=== PATIENT | female | born 1940 | race Caucasian/White ===

== ENCOUNTER → 2016-12-15 | Day surgery (SDC) | payer MEDICARE ==
[2016-12-08 08:34] VITALS: BMI 27.0
--- NOTE | 2016-12-11 16:07 | DIAGNOSTIC IMAGING REPORT ---
CHEST 2 VIEWS ROUTINE CLINICAL HISTORY: PRE OP preoperative evaluation COMPARISON STUDY: No previous studies for comparison. FINDINGS: The bones soft tissues and hemidiaphragms are normal. The cardiomediastinal silhouette is normal. The lungs are clear. The pulmonary vasculature is normal. IMPRESSION: Negative chest. Electronically signed by: Sandor Biggs M.D. 12/11/2016 4:05 PM Dictated Date/Time: 12/11/2016 4:05 PM
--- NOTE | 2016-12-14 18:36 | HISTORY & PHYSICAL EXAMINATION ---
DATE OF ADMISSION: 12/15/2016 CHIEF COMPLAINT: Chronic right shoulder pain. HISTORY OF PRESENT ILLNESS: This is a female patient of Dr. Goyal'vimal complaining of chronic right shoulder pain status post an injury. She has failed conservative treatment including injections, therapy and anti-inflammatories. MRI has confirmed impingement, distal clavicle arthritis and rotator cuff tear. The patient wishes to proceed with a right shoulder arthroscopic subacromial decompression, distal clavicle excision and rotator cuff repair. PAST MEDICAL HISTORY: Mitral valve prolapse, asthma, depression, diabetes controlled by diet, hypothyroidism, irritable bowel syndrome. SOCIAL HISTORY: Nonsmoker, nondrinker. PAST SURGICAL HISTORY: Appendectomy, hysterectomy and laparoscopic surgery, cataracts bilateral and eye muscle surgery. FAMILY HISTORY: Noncontributory. REVIEW OF SYSTEMS: Chronic right shoulder pain and decreased function and strength. Otherwise, denies any shortness of breath, chest pain, nausea, vomiting or any other joint complaints. MEDICATIONS: Amlodipine 5 mg daily, aspirin 81 mg daily, Vitamin D3 1000 units daily, furosemide 20 mg daily, Synthroid 50 mcg daily, metoprolol 25 mg daily, magnesium 500 mg daily, Prilosec 20 mg daily, potassium chloride extended release 20 mEq daily, CoQ10 100 mg daily. ALLERGIES: No known drug allergies. PHYSICAL EXAMINATION: GENERAL: Well-developed, well-nourished female in no acute distress. She is alert and oriented x3 and pleasant. HEENT: Normocephalic, atraumatic. Extraocular motions are intact. Pupils are equal and reactive to light. HEART: Regular rate and rhythm, no murmurs appreciated. LUNGS: Clear. ABDOMEN: Soft, nontender, bowel sounds present. EXTREMITIES: Right shoulder reveals positive impingement pain. She has 3+/5 strength globally. She has crepitation with passive range of motion. She has AC joint tenderness. NEUROLOGIC: Neurovascularly, she is intact in her right upper extremity. DIAGNOSES: Right shoulder acromioclavicular arthritis, impingement, rotator cuff tear. She also has a history of mitral valve prolapse, hypertension, hypercholesterolemia, asthma, depression, diabetes which is diet controlled, hypothyroidism, and irritable bowel syndrome. PLAN: The patient was advised of her diagnoses. Indications, risks, benefits, and postop course have all been reviewed. The patient wishes to proceed with a right shoulder arthroscopic subacromial decompression, distal clavicle excision, and rotator cuff repair.
[~2016-12-15] VITALS: Ht 160 cm; Wt 70.5 kg
[~2016-12-15] MED LIST: AMLO-110 PO; ASCO10003 PO; ASPCH81X PO; ATROPINE SULFATE 0.1 MG/ML 5ML SYR IV PRN; B-CO1CAP3 PO; CEFAZOLIN 1000MG/55 ML D5W IV SCH; CHOL1000 PO; COEN100C3 PO; COEN1CAP28 PO; DEXAMETHASONE SOD INJ 4 MG/ML VIAL ONE; DOXY100C76 PO; DRY EYE OPB; EpHEDrine SULFATE 50MG/5ML SYR ONE; EpHEDrine SULFATE INJ 50 MG/ML AMP IV PRN; EpHEDrine SULFATE INJ 50 MG/ML AMP ONE; FENTANYL CITRATE INJ 50 MCG/1 ML 2 ML VIAL IV PRN; FENTANYL CITRATE INJ 50 MCG/1 ML 2 ML VIAL ONE; FURO-85 PO; ISOS60TA25 PO; LACTATED RINGER'S 1000ML 1,000 ML IV SCH; LEVO50TA PO; MAGN500C PO; MEPERIDINE HCL 25 MG/ML CARP ONE; METO25TA56 PO; MIDAZOLAM HCL 1 MG/ML 2ML VIAL ONE; MORP-158 PO; MULT-506 PO; NTRGSL/4 UT; ONDANSETRON INJ 2 MG/ML 2 ML VIAL IV PRN; ONDANSETRON INJ 2 MG/ML 2 ML VIAL ONE; OXYC-59 PO; OXYCODONE/ACETAMINOPHEN 5-325 TAB PO PRN; PHENYLEPHRINE 100MCG/ML 5ML SYR ONE; PHENYLEPHRINE HCL INJ 10 MG/ML VIAL ONE; POTA1POW PO; POTA20TA16 PO; PRLSR20 PO; PROPOFOL IV EMULSION 10 MG/ML 20 ML VIAL IV ONE; ROPIVACAINE 0.5% 5 MG/ML 30 ML VIAL ONE; ROSU20TA PO; SODIUM CHLORIDE 0.9% 1000ML 1,000 ML IV SCH; VNTHFA/IN INH
[2016-12-15 07:30] VITALS: BP_SYST 151; BP_SYST 157; BP_DIAS 67; PULSE 61; TEMP 36.4; O2SAT 98; O2SAT 99; Ht 160 cm; Wt 70.5 kg
[2016-12-15 08:34] LABS: PARTIAL THROMBOPLASTIN RATIO 0.9; PROTHROMBIN TIME (PATIENT) 10.5 SECONDS (9.0-12.0)
--- NOTE | 2016-12-15 09:20 | History & Physical Bridge Note ---
H&P Re-Evaluation Bridge Note: I have examined the patient, reviewed the History & Physical and in the interval since the performance of the History & Physical I have noted the following changes of clinical significance: No changes noted
--- NOTE | 2016-12-15 12:20 | [facility] Operative Report ---
Operative Report Operative Date Dec 15, 2016. Pre-Operative Diagnosis right shoulder rotator cuff tear chronic but post traumatic with acj djd and biceps tendinopathy and impingement Post-Operative Diagnosis same with biceps rupture and djd ghj Procedure(s) Performed right shoulder arthroscopy with rotator cuff repair and decompression and distal clavicle excision and debridement Surgeon riais Crew Trainer Surgeon(s) bogdan branch Estimated Blood Loss 2cc Findings large tear supraspinatus and infraspinatus with moderate retraction djd ghj oa biceps rupture Specimens none Drains none Anesthesia general and egional Complication(s) None Disposition Recovery Room / PACU Indications pain and weaknes s/p fall I attest to the content of the Intraoperative Record and any orders documented therein. Any exceptions are noted below.
--- NOTE | 2016-12-15 12:30 | Discharge Instructions ---
Discharge Instructions Date of Service Dec 15, 2016. Admission Reason for Admission: Right Shoulder Impingement Syndrome, Ac Joint Djd Discharge Discharge Diagnosis / Problem: Right shoulder rotator cuff repair, distal clavicle excision, decompression Discharge Goals Goal(s): Improve function Activity Recommendations Activity Limitations: as noted below . Instructions / Follow-Up Instructions / Follow-Up Please see printed Post Op Instruction Sheet in chart. Please see printed Home Exercise Sheet in chart. NO formal PT until follow up in office. No driving. Follow up with Dr. Goyal's office 10-12 days post op as scheduled, call to confirm appt. Current Hospital Diet Patient's current hospital diet: Discharge Diet Recommended Diet: Diabetes Type 2 Diet Procedures Procedures Performed: right shoulder arthroscopy with rotator cuff repair and decompression and distal clavicle excision and debridement Pending Studies Studies pending at discharge: no Medical Emergencies . Who to Call and When: Medical Emergencies: If at any time you feel your situation is an emergency, please call 911 immediately. . Non-Emergent Contact Non-Emergency issues call your: Primary Care Provider . "Provider Documentation" section prepared by Sandor Lema. VTE Core Measure Inpt VTE Proph given/why not?: SCD's [place] Drug Monitoring Program Search Results: patient reviewed within database, no issues identified
--- NOTE | 2016-12-15 13:42 | Anesthesiology Progress Note ---
Anesthesia Post Op Note Date & Time Dec 15, 2016 at 13:42 Vital Signs Pain Intensity: 0 Vital Signs Past 12 Hours Date Time Temp Pulse Resp B/P Pulse Ox O2 Delivery O2 Flow Rate FiO2 12/15/16 13:25 36.2 78 16 149/66 98 Room Air 12/15/16 13:15 36.2 74 16 149/66 95 Room Air 12/15/16 13:10 81 14 152/67 98 Room Air 12/15/16 13:00 83 12 151/68 97 Room Air 12/15/16 12:50 85 14 147/69 98 Room Air 12/15/16 12:40 78 12 136/64 100 Mask 12/15/16 12:30 78 10 140/60 100 Mask 12/15/16 12:23 36.8 79 16 142/60 100 Mask 12/15/16 07:30 36.4 61 16 157/67 99 Room Air 12/15/16 07:30 36.4 61 20 151/67 98 Room Air Notes Mental Status: alert / awake / arousable, participated in evaluation Pt Amnestic to Procedure: Yes Nausea / Vomiting: adequately controlled Pain: adequately controlled Airway Patency, RR, SpO2: stable & adequate BP & HR: stable & adequate Hydration State: stable & adequate Anesthetic Complications: no major complications apparent
[2016-12-15 13:45] VITALS: BP 140/60; PULSE 76; TEMP 36.3; O2SAT 97
--- NOTE | 2016-12-15 13:59 | OPERATIVE REPORT ---
DATE OF OPERATION: 12/15/2016 INDICATION FOR PROCEDURE: The patient is a 76-year-old female who suffered a fall, injured her right shoulder. She had some conservative management including injections and therapy. Failed to improve. MRI demonstrates a large retracted rotator cuff tear, biceps tendinopathy, type 2 acromion, subacromial impingement, hypertrophic AC joint causing impingement. PREOPERATIVE DIAGNOSES: Right shoulder chronic but posttraumatic large rotator cuff tear with retraction, biceps tendinopathy, subacromial impingement and acromioclavicular joint arthritis. POSTOPERATIVE DIAGNOSES: Same including glenohumeral joint degenerative joint disease, some degeneration of glenoid labrum. PROCEDURES: Right shoulder arthroscopy, rotator cuff repair, subacromial decompression, distal clavicle excision and debridement including superior capsular release and debridement of subacromial bursal adhesions, subacromial bursa, rotator cuff and glenohumeral joint with extensive debridement. SURGEON: Dr. Goyal. WILDLIFE CONSERVATIONIST: GILLIAN Hagen. ANESTHESIA: Regional block general. OPERATIVE PROCEDURE: The patient was taken to the operating room, anesthetized with regional and/or general anesthetic. [facility] in 70-degree beach chair position and right shoulder was examined under anesthesia. She had prominent AC joint and good range of motion of her shoulder. Right shoulder was sterilely prepped and draped with ChloraPrep. Arthroscopy was started with a posterior arthroscopy portal in the soft spot, anterior bone rotator interval, lateral portal in subacromial space and anterior superior lateral and posterior superior lateral small incisions for suture anchor placement. Intra-articular findings demonstrate some grade 3 wear on the glenoid. Humeral head had a good articular surface. The labrum had some fraying, the biceps tendon was ruptured and retracted. The subscapularis tendon had a little bit of fraying in the upper edge. There was some synovitis in the rotator interval. There was a large rotator cuff tear, supraspinatus and infraspinatus with the complete tear of the supraspinatus, complete tear of the infraspinatus, both retracted at least 50% way back to the glenoid. The teres minor was still intact. There was some thickened bursa overlying the teres minor and posterior infraspinatus and medial rotator cuff area. There was a type 2 acromion, some fraying in the CA ligament consistent with impingement and there was inferior AC joint spurs causing impingement and grade 3 to early grade 4 DJD of AC joint. There was a prominent inferior distal clavicle causing impingement. Starting in the glenohumeral joint, I used a 4.5 resector suction shaver device to smooth out the articular surface of the glenoid, debride the labrum circumferentially and do some partial synovectomy, debride the undersurface of the rotator cuff. I did a release of the rotator interval capsule under the coracoid process, releasing the tissue and capsule off the base of the coracoid and under the supraspinatus. The infraspinatus did not require release posteriorly. In the subacromial space, I did a thorough bursectomy. All the bursal adhesions were released with radiofrequency ablator and the resector blade. The edge of the cuff was debrided. The footprint of the supraspinatus and infraspinatus were both debrided from the medial articular cartilage laterally to the lateral footprint of the supraspinatus and infraspinatus, creating exposed bony surface for repair, but not decorticating the bone. The rotator cuff was repaired with dual row fixation. First I went ahead and did a subacromial decompression using a 5.5 bur to flatten out the undersurface of the acromion to a type 1 flat shape. The undersurface of the 1 cm distal clavicle was resected initially after we did ablate the inferior capsule to expose the spurs on the AC joint. At this point, arthroscopic working cannulas were placed. Then the cup was repaired using dual row fixation using Blackwell \T\ Nephew Healicoil 5.5 mm suture anchors with #2 Ultrabraid sutures, double loaded anchors. We used 2 of those for the medial row under the supraspinatus and infraspinatus and then footprint anchors laterally. The sutures were passed with an [employer] suture passer in a horizontal mattress fashion. They were tied down, spanning the tear from posterior to anterior. We also placed a dnca-dx-gfig suture between the infraspinatus and the teres minor, which was tied with an arthroscopic sliding locking knot with a Ridge knot using 3 reverse half hitches on alternating posts, now used for all sutures that were tied. All sutures were tied in the medial row and the lateral sutures were placed through footprint anchors with a crisscross pattern laterally, getting a compression from anterior to posterior with anatomic repair. Repair was secured with the arm at the side and there was no impingement. Then I went ahead and removed the upper aspect of the 1 cm distal clavicle up to the superior and posterior capsule which was preserved for stability. After irrigation of the subacromial space and free of all debris, the portal sites were closed with nylon sutures. Sterile dressings were applied and abduction pillow sling was placed. GILLIAN Hagen was my field research assistant. He functioned as field research assistant through the entire procedure. He assisted in patient positioning, prepping, draping, arm positioning, instrument management, suture management during the repair and performed skin closure and will participate in postoperative care of the patient. I attest to the content of the Intraoperative Record and any orders documented therein. Any exceptio ns are noted below.
[2016-12-15 14:15] VITALS: BP 140/65; PULSE 71; TEMP 36.4; O2SAT 97
[2016-12-15 14:45] VITALS: BP 139/60; PULSE 78; TEMP 36.6; O2SAT 96
== END | disposition home or self-care (01) ==
LOC: C.ACU 07:19
PROVIDERS: ATTEND Orthopaedic Surgery Sports Medicine
DX: S46.011A Strain of muscle(s) and tendon(s) of the rotator cuff of right shoulder, initial encounter (principal); M75.21 Bicipital tendinitis, right shoulder; M25.811 Other specified joint disorders, right shoulder; M19.011 Primary osteoarthritis, right shoulder; M75.41 Impingement syndrome of right shoulder; W19.XXXA Unspecified fall, initial encounter; J45.909 Unspecified asthma, uncomplicated; I25.10 Atherosclerotic heart disease of native coronary artery without angina pectoris; I10 Essential (primary) hypertension; E11.9 Type 2 diabetes mellitus without complications; E03.9 Hypothyroidism, unspecified; Z90.710 Acquired absence of both cervix and uterus; Z90.89 Acquired absence of other organs; Z98.41 Cataract extraction status, right eye; Z98.42 Cataract extraction status, left eye; Z79.82 Long term (current) use of aspirin; Z68.27 Body mass index [BMI] 27.0-27.9, adult

== ENCOUNTER 2017-05-18 09:00 | Day surgery (SDC) | payer MEDICARE ==
[2017-05-05 09:26] VITALS: BMI 28.0
--- NOTE | 2017-05-05 10:04 | PAT Medication Instructions ---
Service Date May 05, 2017. Current Home Medication List Albuterol Hfa (Ventolin Hfa), 2-4 PUFFS INH Q6H PRN for PRN Amlodipine (Norvasc), 5 MG PO QAM Aspirin (Aspirin Chewable), 81 MG PO HS B-Complex Vitamins (B Complex), 1 CAP PO QAM Cholecalciferol (Vitamin D3), 1 TAB PO QAM Coenzyme Q10 (Ubidecarenone) (Co Q-10), 100 MG PO QAM Doxycycline Monohydrate (Monodox), 100 MG PO BID Furosemide (Lasix), 20 MG PO QAM Isosorbide Mononitrate Ext Rel (Imdur Ext Rel), 60 MG PO QAM Levothyroxine Sodium (Synthroid), 50 MCG PO QAM Magnesium Oxide (Mg Supplement (Magnesium), 500 MG PO BID Metoprolol Tartrate (Lopressor) (Lopressor), 25 MG PO HS Multivitamin (Multivitamin), 1 TAB PO QAM Nitroglycerin (Nitrostat), 0.4 MG UT PRN Omeprazole (Prilosec), 20 MG PO QAM Oxycodone/Acetaminophen 10MG/325MG (Percocet 10MG/325MG), 1 TAB PO Q4H PRN for Pain Potassium Ext Rel (Klor-Con), 20 MEQ PO QAM Rosuvastatin Calcium (Crestor), 20 MG PO HS [Dry Eye], 1 DROP OPB DAILY PRN for DRY EYE Medication Instructions For Your Scheduled Surgery - Check with surgeon/idea man for instructions: Aspirin (Aspirin Chewable), 81 MG PO HS - Hold the following medications starting 05/06/17: Coenzyme Q10 (Ubidecarenone) (Co Q-10), 100 MG PO QAM - Hold the following medications the morning of surgery: Potassium Ext Rel (Klor-Con), 20 MEQ PO QAM Multivitamin (Multivitamin), 1 TAB PO QAM Magnesium Oxide (Mg Supplement (Magnesium), 500 MG PO BID Furosemide (Lasix), 20 MG PO QAM B-Complex Vitamins (B Complex), 1 CAP PO QAM Cholecalciferol (Vitamin D3), 1 TAB PO QAM - Take the following medications the morning of surgery with a sip of water: [Dry Eye], 1 DROP OPB DAILY PRN for DRY EYE (if needed) Nitroglycerin (Nitrostat), 0.4 MG UT PRN (if needed) Omeprazole (Prilosec), 20 MG PO QAM Oxycodone/Acetaminophen 10MG/325MG (Percocet 10MG/325MG), 1 TAB PO Q4H PRN for Pain (okay to continue up to 4 hours prior to surgery if needed) Levothyroxine Sodium (Synthroid), 50 MCG PO QAM Isosorbide Mononitrate Ext Rel (Imdur Ext Rel), 60 MG PO QAM Doxycycline Monohydrate (Monodox), 100 MG PO BID Albuterol Hfa (Ventolin Hfa), 2-4 PUFFS INH Q6H PRN for PRN (if needed) Amlodipine (Norvasc), 5 MG PO QAM (if needed) - Take the following medications as scheduled the night before surgery: Rosuvastatin Calcium (Crestor), 20 MG PO HS [Dry Eye], 1 DROP OPB DAILY PRN for DRY EYE (if needed) Nitroglycerin (Nitrostat), 0.4 MG UT PRN (if needed) Oxycodone/Acetaminophen 10MG/325MG (Percocet 10MG/325MG), 1 TAB PO Q4H PRN for Pain (if needed) Metoprolol Tartrate (Lopressor) (Lopressor), 25 MG PO HS Magnesium Oxide (Mg Supplement (Magnesium), 500 MG PO BID Doxycycline Monohydrate (Monodox), 100 MG PO BID Albuterol Hfa (Ventolin Hfa), 2-4 PUFFS INH Q6H PRN for PRN (if needed) If you have any questions please call us at [phone] or [phone] or [phone]
[2017-05-05 10:39] LABS: BASO % 0.6 %; BASO ABS # 0.05 K/uL (0-0.2); COMPLETE YES; EOS % 3.5 %; HEMATOCRIT 37.4 % (37-47); IG% 0.2 %; LYMPH % 16.3 %; LYMPH ABS # 1.48 K/uL (1.2-3.4); MEAN CELL VOLUME 92.1 fL (80-100); MEAN CORPUSCULAR HGB CONC 33.7 g/dl (32-36); MEAN PLATELET VOLUME 11.3 fL (7.4-10.4); MONO % 9.4 %; PLATELET COUNT 214 K/uL (130-400); RED BLOOD COUNT 4.06 M/uL (4.2-5.4); URINE APPEARANCE CLEAR (CLEAR); URINE BILIRUBIN NEG (NEG); URINE COLOR YELLOW; URINE NITRITE NEG (NEG); URINE SPECIFIC GRAVITY 1.009 (1.000-1.030); UROBILINOGEN NEG (NEG); WHITE BLOOD COUNT 9.06 K/uL (4.8-10.8)
[2017-05-05 10:48] LABS: PARTIAL THROMBOPLASTIN RATIO 0.9; PROTHROMBIN TIME (PATIENT) 10.4 SECONDS (9.0-12.0)
[2017-05-05 10:50] LABS: BUN/CREATININE RATIO 17.7 (10-20); CALCIUM 9.7 mg/dl (8.5-10.1); CREATININE 1.4 mg/dl (0.60-1.20); POTASSIUM 4.7 mmol/L (3.5-5.1)
[2017-05-05 10:53] LABS: MANUAL MICROSCOPIC REQUIRED? NO; REVIEW REQ? NO
--- NOTE | 2017-05-17 18:51 | HISTORY & PHYSICAL EXAMINATION ---
DATE OF ADMISSION: 05/18/2017 CHIEF COMPLAINT: Chronic right shoulder pain. HISTORY OF PRESENT ILLNESS: This is a 77-year-old female patient of Dr. Goyal, complaining of chronic right shoulder pain, status post rotator cuff repair in November 2016. The patient has failed conservative treatment. She has been diagnosed with a possible retear per MRI and wishes to proceed with a right shoulder rotator cuff revision and possible graft. PAST MEDICAL HISTORY: Angina, heart valve problem, hypertension, hypercholesterolemia, irregular heartbeat, asthma, Lyme's disease, diabetes mellitus, hypothyroidism, osteoarthritis, spine problems, neck problems, sciatica, acid reflux, obesity, and uterine cancer. SOCIAL HISTORY: Nonsmoker and nondrinker. REVIEW OF SYSTEMS: The patient complains of chronic right shoulder pain and decreased function. Otherwise, denies any shortness of breath, chest pain, nausea, vomiting or any other joint complaints. MEDICATIONS: Amlodipine 5 mg daily, aspirin 81 mg daily, vitamin D3 daily, furosemide 20 mg daily, Synthroid 50 mcg daily, metoprolol 25 mg daily, magnesium oxide 500 mg daily, Prilosec 20 mg daily, potassium chloride 20 mEq daily with food, CoQ-10 daily, and Crestor 20 mg daily. ALLERGIES: No known drug allergies. PHYSICAL EXAMINATION: GENERAL: Well-developed and well-nourished 77-year-old female patient, in no acute distress. She is alert and oriented x3 and pleasant. HEENT: Normocephalic and atraumatic. Extraocular motions are intact. Pupils are equal and reactive to light. HEART: Regular rate and rhythm. No murmurs appreciated. LUNGS: Clear. ABDOMEN: Soft and nontender. Bowel sounds are present. EXTREMITIES: Right shoulder reveals limited range of motion with 3/5 strength. She has painful range of motion. NEUROLOGIC: Neurovascularly, she is intact in her right upper extremity. DIAGNOSES: Right shoulder rotator cuff tear, status post revision. She has a history of hypertension, heart valve problem, hypercholesterolemia, asthma, diabetes, hypothyroidism, Lyme's disease, osteoarthritis, spine problems, neck problems, sciatica, acid reflux, obesity, and uterine cancer. PLAN: The patient was advised of her diagnoses. Indications, risks, benefits, and postop course have all been reviewed. The patient wishes to proceed with a right shoulder arthroscopic rotator cuff repair and possible graft. Necessary consent forms and preoperative testing clearances will be obtained.
[~2017-05-18] VITALS: Ht 160 cm; Wt 72.8 kg
[~2017-05-18 09:00] MED LIST changes: -ASCO10003 PO; -ATROPINE SULFATE 0.1 MG/ML 5ML SYR IV PRN; -COEN1CAP28 PO; -EpHEDrine SULFATE 50MG/5ML SYR ONE; -EpHEDrine SULFATE INJ 50 MG/ML AMP IV PRN; -EpHEDrine SULFATE INJ 50 MG/ML AMP ONE; -FENTANYL CITRATE INJ 50 MCG/1 ML 2 ML VIAL IV PRN; -FENTANYL CITRATE INJ 50 MCG/1 ML 2 ML VIAL ONE; -MEPERIDINE HCL 25 MG/ML CARP ONE; -MIDAZOLAM HCL 1 MG/ML 2ML VIAL ONE; -MORP-158 PO; -ONDANSETRON INJ 2 MG/ML 2 ML VIAL IV PRN; -ONDANSETRON INJ 2 MG/ML 2 ML VIAL ONE; -OXYCODONE/ACETAMINOPHEN 5-325 TAB PO PRN; -PHENYLEPHRINE 100MCG/ML 5ML SYR ONE; -PHENYLEPHRINE HCL INJ 10 MG/ML VIAL ONE; -POTA1POW PO; -PROPOFOL IV EMULSION 10 MG/ML 20 ML VIAL IV ONE; -SODIUM CHLORIDE 0.9% 1000ML 1,000 ML IV SCH
[2017-05-18 09:53] VITALS: BP 137/65; PULSE 62; TEMP 36.7; O2SAT 95; Ht 160 cm; Wt 72.8 kg
[2017-05-18] MEDS ORDERED: FENTANYL CITRATE INJ 50 MCG/1 ML 2 ML VIAL IV PRN ×2 (10:45)
[2017-05-18] MEDS ORDERED: ATROPINE SULFATE 0.1 MG/ML 5ML SYR IV PRN ×2 (10:45)
[2017-05-18] MEDS ORDERED: EpHEDrine SULFATE INJ 50 MG/ML AMP IV PRN ×2 (10:45)
[2017-05-18] MEDS ORDERED: LABETALOL HCL IV 5 MG/ML 20ML IV PRN ×2 (10:45)
[2017-05-18] MEDS ORDERED: MEPERIDINE HCL 25 MG/ML CARP IV PRN ×2 (10:45)
[2017-05-18] MEDS ORDERED: ONDANSETRON INJ 2 MG/ML 2 ML VIAL IV PRN ×2 (10:45)
[2017-05-18] MEDS ORDERED: HYDROmorphone INJ 1 MG/ML SYR IV PRN ×2 (10:45)
[2017-05-18] MEDS ORDERED: MIDAZOLAM HCL 1 MG/ML 2ML VIAL ONE (12:12)
[2017-05-18] MEDS ORDERED: FENTANYL CITRATE INJ 50 MCG/1 ML 2 ML VIAL ONE (12:12)
[2017-05-18] MEDS ORDERED: EpINEphrine HCL INJ 1 MG/ML 5ML SYRINGE ONE ×2 (13:29→13:49)
[2017-05-18] MEDS ORDERED: LIDOCAINE HCL 2% 2 ML VIAL (20MG/ML) ONE (15:02)
[2017-05-18] MEDS ORDERED: ROCURONIUM BROMIDE 10 MG/ML 5 ML VIAL IV ONE (15:02)
[2017-05-18] MEDS ORDERED: ONDANSETRON INJ 2 MG/ML 2 ML VIAL ONE ×2 (15:02→16:25)
[2017-05-18] MEDS ORDERED: PROPOFOL IV EMULSION 10 MG/ML 20 ML VIAL IV ONE (15:02)
[2017-05-18] MEDS ORDERED: DEXAMETHASONE SOD INJ 4 MG/ML VIAL ONE (15:02)
[2017-05-18] MEDS ORDERED: GLYCOPYRROLATE INJ 0.2 MG/ML VIAL ONE (15:03)
[2017-05-18] MEDS ORDERED: NEOSTIGMINE METHYLSULFATE 5 MG/5 ML SYR ONE (15:03)
--- NOTE | 2017-05-18 16:21 | Discharge Instructions ---
Discharge Instructions Date of Service May 18, 2017. Visit Reason for Visit: Right Shoulder Recurrent Rotator Cuff Tear Discharge Discharge Diagnosis / Problem: sp Right shoulder arthroscopy, revision rotator cuff repair Discharge Goals Goal(s): Decrease discomfort, Improve function, Increase independence Activity Recommendations Activity Limitations: per Instructions/Follow-up section U DISCHARGE INSTRUCTIONS: ROTATOR CUFF REPAIR SELF CARE INSTRUCTIONS A. You are permitted to loosen your sling/immobilizer to move your elbow, wrist , and hand to prevent stiffness. You should use your well arm (good arm) to assist the operated extremity when trying to raise the arm away from the body, hygiene purposes. Do NOT actively try to use/engage your shoulder muscles in operative arm at this time. You should NOT do overhead activity, lifting, or attempt to reach behind your back. B. You may/may not be instructed to start Physical Therapy upon discharge depending upon the size and difficulty of the repair. You will be provided a prescription for therapy with specific restrictions, if needed, at time of discharge. C. At 48 hours post-operatively, you may change your dressing. (Leave white steri-strips intact if present). Use band-aids and change daily. You are allowed to shower at this time and get the incision area wet, but DO NOT soak or submerge incision area in water. (No baths, swimming pools, hot tubs) D. Do NOT apply soap or any ointment/lotions directly over incision. E. You may use ice as needed to operative shoulder SPECIAL CARE INSTRUCTIONS: VERY IMPORTANT TO READ AND REVIEW A. There are a few signs you need to watch for after you are home. Call [facility] at [phone] if you experience any of the following: a. Increased severe shoulder pain. Some pain is expected especially when you exercise b. Increased swelling in your shoulder or arm; pain or swelling in either upper extremity. (Note: swelling and stiffness is normal and expected for several weeks post op, depending on type of shoulder surgery you had). c. Any fluid or drainage from the incision; redness of the incision. d. Shortness of breath or chest pain. B. Please call [facility] at [phone] if you have any questions or concerns about your operation or recovery. C. Call your physician if: a. Temperature is greater than 101 degrees (F). b. Pain is not relieved by prescribed pain medications. c. Increase drainage or redness from incision. d. Unanswered questions or concerns. D. Pain Medication: a. You will be prescribed pain medication upon discharge that should last till your first post-operative appointment. b. If you experience nausea and/or skin rash, discontinue this medication and contact our office for an alternative medication. c. Caution- narcotic pain medication can cause constipation. FOLLOW UP VISIT: Please call [facility] at [phone] to schedule a follow up appointment 10-14 days from your surgery date. Anesthesia . Post Anesthesia Instructions: If you have had General Anesthesia or IV Sedation: * Do not drive today. * Resume driving when surgeon permits. * Do not make important decisions or sign legal documents today. * Call surgeon for: 1. Temperature elevations greater than 101 degrees F. 2. Uncontrollable pain. 3. Excessive bleeding. 4. Persistent nausea and vomiting. 5. Medication intolerance (nausea, vomiting or rash). * For nausea and vomiting use only clear liquids such as: tea, soda, bouillon until nausea subsides, then gradually increase diet as tolerated. * If you have any concerns or questions, call your surgeon's office. If physician is unavailable and it is an emergency, call 911 or go to the nearest emergency room. . Diet Recommendations Recommended Home Diet: resume previous diet Procedures Procedures Performed: Right shoulder arthroscopic revision rotator cuff repair Pending Studies Studies pending at discharge: no Medical Emergencies . Who to Call and When: Medical Emergencies: If at any time you feel your situation is an emergency, please call 911 immediately. . Non-Emergent Contact Non-Emergency issues call your: Surgeon . . "Provider Documentation" section prepared by Laxmi Guzman. .
[2017-05-18] MEDS ORDERED: OXYC-59 PO (16:22)
--- NOTE | 2017-05-18 16:34 | [facility] Post Operative Brief Note ---
Immediate Operative Summary Operative Date May 18, 2017. Pre-Operative Diagnosis Right shoulder rotator cuff tear s/p prior repair Post-Operative Diagnosis same.djd glenohumeral,bursitis ,subacromial adhesions,retained suture material Procedure(s) Performed Right shoulder arthroscopic revision rotator cuff repair,extensive debridement Surgeon Dr. Goyal Sightseeing Guide Surgeon(s) Laxmi Guzman PA-C Estimated Blood Loss 5ML Findings soft tissue failure at medial row fixation supraspinatus only,glenohumeral oa Specimens none Anesthesia general and regional Complication(s) None Disposition Recovery Room / PACU
--- NOTE | 2017-05-18 16:52 | Anesthesiology Progress Note ---
Anesthesia Post Op Note Date & Time May 18, 2017 at 16:52 Vital Signs Pain Intensity: 0 Vital Signs Past 12 Hours Date Time Temp Pulse Resp B/P (MAP) Pulse Ox O2 Delivery O2 Flow Rate FiO2 05/18/17 16:40 72 16 137/64 98 Oxymask 10 05/18/17 16:30 78 16 148/66 97 Oxymask 10 05/18/17 16:20 36.7 91 16 165/86 95 Oxymask 10 05/18/17 09:53 36.7 62 18 137/65 (89) 95 Room Air Notes Mental Status: alert / awake / arousable, participated in evaluation Pt Amnestic to Procedure: Yes Nausea / Vomiting: adequately controlled Pain: adequately controlled Airway Patency, RR, SpO2: stable & adequate BP & HR: stable & adequate Hydration State: stable & adequate Anesthetic Complications: no major complications apparent
[2017-05-18 17:07] VITALS: BP 140/69; PULSE 79; TEMP 36.5; O2SAT 97
[2017-05-18 17:40] VITALS: BP 142/63; PULSE 80; O2SAT 96
[2017-05-18 18:05] VITALS: BP 149/68; PULSE 81; TEMP 36.8; O2SAT 96
--- NOTE | 2017-05-18 19:30 | OPERATIVE REPORT ---
DATE OF OPERATION: 05/18/2017 HISTORY OF PRESENT ILLNESS AND INDICATION FOR PROCEDURE: A 77-year-old female with right shoulder pain. She has history of a recent arthroscopic rotator cuff repair by myself. She had a dual row fixation. She was doing excellently in therapy, then was asked to have to wait. However, then she felt she could handle. She had pain afterwards, had increased pain return to her shoulder. She failed some conservative management, status post the reinjury and then we reimaged her and demonstrated she has partial failure of her repair with complete rotator cuff tear. 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 POSTOPERATIVE DIAGNOSIS: Same with soft tissue failure, medial row fixation including some degenerative joint disease, glenohumeral joint. PROCEDURE: Right shoulder revision rotator cuff repair including extensive debridement which included debridement of rotator cuff synovium, superior anterior capsular release, debridement old suture material, debridement subacromial bursa and bursal adhesions. SURGEON: Dr. Goyal. SUPERVISOR STAGE CARPENTRY: GILLIAN Granado. ANESTHESIA: Regional block general. OPERATIVE PROCEDURE: The patient was taken to the operating room, anesthetized under regional block and general anesthetic. She was positioned on a [facility] shoulder table in 70-degree beach chair position. Right shoulder was examined under anesthesia. She had healed arthroscopic portal, she had no swelling. She had full range of motion. Her right shoulder was sterilely prepped and draped with ChloraPrep. Arthroscopy was performed, starting with a posterior arthroscopy portal in the soft spot through her previous scar. We also made an anterior portal in the rotator interval, also in a previous scar, made a lateral portal and superior lateral portal to access subacromial space and placed suture anchor. Intra-articular findings demonstrate she has some DJD of the anterior glenoid with some grade 3, close to grade 4 wear of the anterior rim of the glenoid and just some fraying of the labrum. She had some synovitis. The rotator cuff had failed with the supraspinatus portion of the repair being failed, the infraspinatus portion of the repair being intact. The suture was still intact and there was soft tissue failure through the suture material. In the subacromial space, there was noted to be retraction of the supraspinatus medial and anteriorly with an L-shaped tear between the infraspinatus and the supraspinatus, but the tear occurred at the articular margin with good cuff of tissue lateral to that including supraspinatus tendon tissue that was attached to the infraspinatus posteriorly. There was no impingement as she had had a previous decompression. First extensive debridement was performed, first I did an anterior superior capsular release, exposing the base of the coracoid, so we could mobilize the cuff. I debrided the glenoid labrum, debrided the glenoid articular surface and some minor humeral head debridement where there was some DJD as well and then removed the old suture material using a basket punch and graspers to remove the suture material. Then in the subacromial space, the subacromial bursal adhesions were released. The thickened scarred bursal tissue was mobilized off of the rotator cuff and debrided. Full extent of the rotator cuff tear was identified, exposing the posterior cuff which was intact. The supraspinatus tendon tissue which was retracted but intact, but somewhat foreshortened because of the location where it was torn. At this time, I repaired the footprint upto the intact rotator cuff laterally, left that tissue intact and repaired that out to the medial articular margin and then went up on to the medial articular margin, about 3-4 mm, to get some more bone, so we could repair the tendon back to some bone tissue. The edge of the rotator cuff was debrided anteriorly and posteriorly. All the scarred bursa was excised and all the adhesions were released. The supraspinatus had to have a posterior interval slide performed to adequately mobilize it for a tension free repair. I used a radiofrequency ablator to release the tissue between the posterior supraspinatus and the infraspinatus at the medial glenoid area. This gave us more excursion, so that we could repair the supraspinatus back to bone. At this time, the repair was performed. I used an Arthrex FiberTape to place an inverted mattress rip-stop suture through the supraspinatus. I placed 2 hsgj-hj-[id number] sutures between the supraspinatus anteriorly and the infraspinatus posteriorly. I placed a Q-Fix anchor into the greater tuberosity attachment site, splitting the distance between the prior 2 anchors and placing it slightly more laterally than the medial row anchors to get some bone fixation of the tendon to bone. The sutures in the Q-Fix which was a 2.8 mm anchor, which were #2 nonabsorbable sutures, were passed around the Arthrex tape. This passed sutures through the rotator cuff tissue, medial to the tape which would act as a rip-stop suture technique. The sutures were tied with a Mcculloch sliding locking knot, 3 reverse half hitches in alternating posts, approximating the supraspinatus back to the bone of the greater tuberosity. Then the [id number]-lioj sutures were closed, buried in the front to the back. Then the tapes were passed into an Arthrex 5.5 x 19 mm BioComposite SwiveLock anchor with excellent fixation there. Repair was secured with the arm to side and with rotation there was no impingement. Portal sites were closed with nylon sutures. Sterile dressings were applied and abduction pillow, sling immobilizer. GILLIAN Granado, was my licensed investment sales assistant. She functioned as licensed investment sales assistant for the entire procedure. She assisted in patient positioning, prepping, draping, arm positioning, instrument management during the repair. She performed the skin closure, dressings and placement of the sling. She will participate in some of the postoperative care of the patient. I attest to the content of the Intraoperative Record and any orders documented therein. Any exception s are noted below.
== END 2017-05-18 18:05 | disposition home or self-care (01) ==
LOC: C.ACU 09:00
PROVIDERS: ATTEND Orthopaedic Surgery Sports Medicine
DX: M75.101 Unspecified rotator cuff tear or rupture of right shoulder, not specified as traumatic (principal); M19.011 Primary osteoarthritis, right shoulder; M70.911 Unspecified soft tissue disorder related to use, overuse and pressure, right shoulder; E78.00 Pure hypercholesterolemia, unspecified; I10 Essential (primary) hypertension; J45.909 Unspecified asthma, uncomplicated; E11.9 Type 2 diabetes mellitus without complications; E03.9 Hypothyroidism, unspecified; M19.90 Unspecified osteoarthritis, unspecified site; K21.9 Gastro-esophageal reflux disease without esophagitis; Z85.42 Personal history of malignant neoplasm of other parts of uterus; Z79.82 Long term (current) use of aspirin; Z87.898 Personal history of other specified conditions

== ENCOUNTER → 2018-01-28 | Outpatient (CLI) | payer OTHER ==
[~2018-01-28] MED LIST changes: -CEFAZOLIN 1000MG/55 ML D5W IV SCH; -DEXAMETHASONE SOD INJ 4 MG/ML VIAL ONE; -LACTATED RINGER'S 1000ML 1,000 ML IV SCH; +POTA-639 PO; -POTA20TA16 PO; -ROPIVACAINE 0.5% 5 MG/ML 30 ML VIAL ONE
--- NOTE | 2018-01-28 14:49 | DIAGNOSTIC IMAGING REPORT ---
R HIP UNILATERAL 2 VIEWS CLINICAL HISTORY: Bilateral hip pain. COMPARISON: None FINDINGS: Alignment of the right hip is anatomic. There is no fracture or suspicious lesion. A 1.3 cm bone island within the right femoral neck is noted. There is mild joint space narrowing and osteophytosis of the right hip. There is no evidence for avascular necrosis. IMPRESSION: 1. No acute fracture. 2. Mild osteoarthritis of the right hip. Electronically signed by: Christiano Jones M.D. 01/28/2018 2:48 PM Dictated Date/Time: 01/28/2018 2:43 PM
--- NOTE | 2018-01-28 14:49 | DIAGNOSTIC IMAGING REPORT ---
L HAND MIN 3 VIEWS ROUTINE CLINICAL HISTORY: 78 years-old Female presenting with M13.0 Polyarthritis, [id number]. TECHNIQUE: Frontal, oblique, and lateral views of the left hand were obtained. COMPARISON: None. FINDINGS: Osteopenia present. This limits evaluation for nondisplaced fracture. No acute fracture or malalignment. Joint space loss and osteophytosis noted in several joints most pronounced in the first interphalangeal joint, proximal interphalangeal joint of the fifth finger, and distal interphalangeal joints of the second through fourth fingers. Gullwing deformity suggested. No significant degenerative changes of the carpus are degenerative changes of the distal radial ulnar joint noted. Radiocarpal articulations preserved. The trapezium-first metacarpal articulation is preserved. No evidence of erosive changes. No radiographic soft tissue abnormality. IMPRESSION: 1. Findings suggest osteoarthritis or erosive osteoarthritis primarily affecting the distal interphalangeal joints. 2. Osteopenia. Electronically signed by: Casper Brock M.D. 01/28/2018 2:48 PM Dictated Date/Time: 01/28/2018 2:42 PM
--- NOTE | 2018-01-28 14:50 | DIAGNOSTIC IMAGING REPORT ---
L HIP UNILATERAL 2 VIEWS CLINICAL HISTORY: 78 years-old Female presenting with M13.0 Polyarthritis, [id number]. TECHNIQUE: Frontal and frog-leg lateral views of the left hip were obtained. COMPARISON: Comparison made to plain radiographs of the right hip performed the same day. FINDINGS: Left hip joint congruent. A bone island may be present in the left ischium. Visualized portion of the bony pelvis intact. Left femoral neck and intact. No acute fracture or malalignment. No advanced degenerative change. No radiographic soft tissue abnormality. IMPRESSION: No acute osseous injury. Electronically signed by: Casper Brock M.D. 01/28/2018 2:49 PM Dictated Date/Time: 01/28/2018 2:48 PM
--- NOTE | 2018-01-28 14:53 | DIAGNOSTIC IMAGING REPORT ---
R HAND MIN 3 VIEWS ROUTINE CLINICAL HISTORY: 78 years-old Female presenting with M13.0 bilateral hand pain. TECHNIQUE: Frontal, oblique, and lateral views of the right hand were obtained. COMPARISON: None. FINDINGS: Osteopenia present. Joint space loss, osteophytosis, and subchondral sclerosis noted at the interphalangeal joint of the first finger and distal interphalangeal joints of the second through fourth fingers. Gullwing deformities may be present. The fifth distal interphalangeal joint is minimally affected. The proximal fifth interphalangeal joint is similarly affected. No acute fracture or malalignment. Prominent cyst noted in the scaphoid. The radiocarpal articulation is preserved. Distal radial ulnar articulation preserved. No significant degenerative change of the trapezium-first metatarsal. No radiographic soft tissue abnormality. IMPRESSION: 1. Findings consistent with osteoarthritis or erosive osteoarthritis primarily affecting the distal interphalangeal joints. 2. Osteopenia. Electronically signed by: Casper Brock M.D. 01/28/2018 2:52 PM Dictated Date/Time: 01/28/2018 2:50 PM
--- NOTE | 2018-01-28 15:04 | DIAGNOSTIC IMAGING REPORT ---
LUMBAR SPINE 5 VIEWS CLINICAL HISTORY: Low back pain. Bilateral hip pain. FINDINGS: 5 views of the lumbar spine are obtained. No prior studies are available for comparison at the time of dictation. The skeletal structures are osteopenic. There is no radiographic evidence of fracture or malalignment. Vertebral body height and alignment are maintained. The transverse and spinous processes are intact. There is no evidence of spondylolysis. Anterior and lateral marginal osteophytes are seen throughout. Lumbar levocurvature is centered at L4. There is advanced disc space narrowing seen at all lumbar levels with multilevel degenerative endplate sclerosis. Facet arthropathy seen in the mid to lower lumbar region. The visualized bony pelvis appears intact. There is a nonobstructed abdominal bowel gas pattern. Moderate colonic fecal retention is observed. There is advanced atherosclerotic calcification of the abdominal aorta. IMPRESSION: 1. There is no acute bony abnormality seen involving the lumbosacral spine. 2. Osteopenia with lumbosacral spondylosis and scoliosis as above. Electronically signed by: Arya Bass M.D. 01/28/2018 3:03 PM Dictated Date/Time: 01/28/2018 3:02 PM
[2018-01-28 15:33] LABS: TRANSFERRIN 246 mg/dl (200-360)
== END | disposition home or self-care (01) ==
LOC: C.LAB1850 14:00
PROVIDERS: ATTEND Internal Medicine Rheumatology
DX: M13.0 Polyarthritis, unspecified (principal); M25.551 Pain in right hip; M25.552 Pain in left hip; M70.62 Trochanteric bursitis, left hip; Z86.19 Personal history of other infectious and parasitic diseases; M85.89 Other specified disorders of bone density and structure, multiple sites

== ENCOUNTER 2018-10-27 17:41 | Inpatient (IN) ==
--- NOTE | 2018-10-27 18:41 | XRay Report ---
XR shoulder LT min 2V routine CLINICAL HISTORY: 78 years-old Female presenting with Fall, left shoulder, wrist and knee pain. TECHNIQUE: Internal rotation, external rotation, Grashey views of the left shoulder were obtained. COMPARISON: Correlation made to chest x-ray from 12/11/2016. FINDINGS: Osteopenia suspected. Glenohumeral and acromioclavicular joints congruent. Allowing for osteopenia, n o acute fracture or malalignment. No advanced degenerative change. No radiographic soft tissue abnorm ality. IMPRESSION: Allowing for osteopenia, no acute osseous injury. Electronically signed by: Casper Brock M.D. 10/27/2018 6:39 PM
--- NOTE | 2018-10-27 18:43 | XRay Report ---
XR knee LT 3V CLINICAL HISTORY: 78 years-old Female presenting with Fall, left shoulder, wrist and knee pain. TECHNIQUE: Frontal, lateral, and sunrise views of the left knee were obtained. COMPARISON: None. FINDINGS: Knee joint congruent, however, there is an abnormal appearance of the lateral joint space with possib le compression of the lateral tibial plateau. Underlying osteopenia limits evaluation. No displaced f racture. Moderate knee joint effusion suspected. No malalignment. No patellar subluxation. No advance d degenerative change. Atherosclerosis suspected. IMPRESSION: Findings concerning for tibial plateau impaction fracture. Recommend noncontrast MR or, less ideally, CT. Electronically signed by: Casper Brock M.D. 10/27/2018 6:41 PM
--- NOTE | 2018-10-27 18:45 | XRay Report ---
XR wrist LT min 3V routine CLINICAL HISTORY: 78 years-old Female presenting with Fall, left shoulder, wrist and knee pain. TECHNIQUE: Frontal, bilateral oblique, and lateral views of the left wrist were obtained. COMPARISON: Correlation made to plain radiographs of the left hand from 01/28/2018. FINDINGS: Redemonstration of a chronic deformity of the distal radius, which is likely posttraumatic however, a radiolucency across the distal metaphysis is now evident consistent with an acute fracture. The frac ture plane is immediately proximal to the distal radial ulnar joint. This does not appear to extend i nto the radiocarpal articulations. Degenerative changes of the distal radial ulnar joint. Underlying osteopenia. Ulnar styloid fracture is also likely acute. IMPRESSION: 1. Findings consistent with acute nondisplaced fracture of the distal radial metaphysis. No angulati on or malalignment. This is an acute fracture on an underlying chronic posttraumatic deformity. 2. Acute appearing ulnar styloid fracture. 3. Osteopenia. Electronically signed by: Casper Brock M.D. 10/27/2018 6:44 PM
--- NOTE | 2018-10-27 19:00 | CT Scan Report ---
CT head/brain wo con CLINICAL HISTORY: 78 years-old Female presenting with Fall, head injury. TECHNIQUE: Multidetector CT imaging of the head was performed without the use of intravenous contrast . IV contrast: None. One or more dose lowering techniques were used consistent with the principles of ALARA (as low as reasonably achievable), including automatic exposure control, mA or kV adjustment t o individual patient size, and/or use of iterative reconstruction. COMPARISON: None. CT DOSE (mGy.cm): The estimated cumulative dose is 537.48 mGy.cm. FINDINGS: Research Support Specialist topogram: Unremarkable. Ventricles and sulci normal in size. No hemorrhage. Brain parenchyma normal in appearance with preser joy armas-white differentiation. No acute territorial infarct. No mass effect or midline shift. No ext ra-axial fluid collection. Paranasal sinuses and mastoid air cells clear. Calvarium intact. Bilateral [place] lenses are absent. IMPRESSION: 1. No acute intracranial abnormality. Electronically signed by: Casper Brock M.D. 10/27/2018 6:59 PM
--- NOTE | 2018-10-27 20:02 | Emergency Department Note ---
History of Present Illness General Chief complaint: Fall Stated complaint: FALL, TWISTED LEFT KNEE/HIP/WRIST Time Seen by Provider: 10/27/18 17:53 History of Present Illness Maximum Pain Intensity: 4 This is a 78-year-old female that presents to the emergency department via private vehicle with complaints of "fall, twisted left knee/hip/wrist". The patient states that earlier today around 9 AM she was at home, noting that she was trying to attend to her furnace when she was up on a few cement blocks, lost her balance twisted and landed on her left side. She notes that she struck her head, left arm and left knee off of the ground. She denies loss of consciousness. Other than aspirin, she denies any blood thinners. She notes pain currently in the left wrist and left knee of which she rates as a 4/10. No numbness or tingling. No vomiting. She notes she has a knee brace and left wrist brace on which have been providing some relief. She denies any chest pain or shortness of breath. No abdominal pain. No trouble breathing. Home Medications Home Medications Medication Instructions Recorded Confirmed Type amlodipine [Norvasc] 5 mg PO DAILY 10/27/18 10/27/18 History aspirin [Aspir-81] 81 mg PO DAILY 10/27/18 10/27/18 History coenzyme Q10 [Co Q-10] 100 mg PO DAILY 10/27/18 10/27/18 History ergocalciferol (vitamin D2) 50,000 unit PO WK 10/27/18 10/27/18 History [Vitamin D2] erythromycin 1 applic OPHTHALMIC (EYE) UD 10/27/18 10/27/18 History furosemide [Lasix] 20 mg PO DAILY 10/27/18 10/27/18 History isosorbide mononitrate 60 mg PO DAILY 10/27/18 10/27/18 History levalbuterol tartrate [Xopenex HFA] 2 puff INHALATION UD 10/27/18 10/27/18 History metoprolol succinate [Toprol XL] 25 mg PO DAILY 10/27/18 10/27/18 History multivitamin 1 tab PO DAILY 10/27/18 10/27/18 History nitroglycerin [Nitrostat] 0.3 mg SUBLINGUAL UD PRN 10/27/18 10/27/18 History oxycodone-acetaminophen [Percocet] 1 tab PO Q6 PRN 10/27/18 10/27/18 History pantoprazole [Protonix] 40 mg PO DAILY 10/27/18 10/27/18 History potassium chloride [Klor-Con M20] 20 meq PO DAILY 10/27/18 10/27/18 History rosuvastatin [Crestor] 20 mg PO DAILY 10/27/18 10/27/18 History vitamin B complex 1 tab PO DAILY 10/27/18 10/27/18 History Allergies Allergy/AdvReac Type Severity Reaction Status Date / Time No Known Allergies Allergy Unverified 10/27/18 18:53 Past Med/Surg History Social History marital status: / Current Living Situation: Alone Other Information That Helps Us Care for You: No Feels Safe at Home: Yes Safety Concerns: Feels Safe At This Time Smoking Status: Never smoker Hx Alcohol Use: No Hx Substance Use: No Beliefs That Will Affect Care: None Communication Ability: Effective Review of Systems A total of 10 systems reviewed and were otherwise negative Physical Exam Vital Signs Vital Signs - 24 hr 10/30/18 14:54 10/30/18 21:02 10/30/18 22:58 Temperature 37.0 C 37.1 C Temperature Source Oral Oral Pulse Rate [Apical] Pulse Rate [Finger] 77 76 71 Pulse Rhythm [Finger] Regular Regular Pulse Strength [Finger] Normal Normal Respiratory Rate 20 16 Respiratory Effort / Characteristics Respiratory Depth Normal Normal Respiratory Pattern Blood Pressure [Right Arm] 95/62 L 113/67 110/63 Blood Pressure Mean [Right Arm] 73 82 78 Blood Pressure Position [Right Arm] Lying Lying Pulse Oximetry 94 98 Oxygen Delivery Method Room Air Room Air 10/31/18 08:41 Temperature 36.9 C Temperature Source Oral Pulse Rate [Apical] 64 Pulse Rate [Finger] Pulse Rhythm [Finger] Pulse Strength [Finger] Respiratory Rate 20 Respiratory Effort / Characteristics Non-Labored Spontaneous Respiratory Depth Normal Respiratory Pattern Regular Blood Pressure [Right Arm] 110/52 L Blood Pressure Mean [Right Arm] 71 Blood Pressure Position [Right Arm] Pulse Oximetry 97 Oxygen Delivery Method Room Air VITAL SIGNS - Vital signs and nursing notes were reviewed. Stable. Afebrile. GENERAL -78-year-old female appearing her stated age who is in no acute distress. Communicates well with provider and answers questions appropriately. SKIN -no breaks in the integument. There is tenderness noted overlying the patient's left wrist with edema dorsally and bruising beginning on the medial aspect. No deformity to inspection. HEAD - NC/AT. EYES - PERRL with EOMI bilaterally. Sclera anicteric. EARS - No deformities of external structures noted on gross examination bilaterally. NOSE - Midline and without cyanosis. No epistaxis or purulent drainage noted. MOUTH/OROPHARYNX - Without perioral cyanosis. Buccal mucosa pink and moist and without leukoplakia. Tongue midline with equal elevation of palate bilaterally. NECK - Neck with FROM. No nuchal rigidity. No C-spine tenderness. LUNGS - Chest wall symmetric without accessory muscle use, intercostals retractions, or central cyanosis. Normal vesicular breath sounds CTA B/L. No wheezes, rales, or rhonchi appreciated. CARDIAC - RRR with S1/S2. No murmur, rubs, or gallops appreciated. ABDOMEN - Abdominal contour normal without pulsations or visible masses. BS normoactive all four quadrants. No tenderness, palpable masses, hepatosplenomegaly, or ascites noted. EXTREMITIES - No clubbing or peripheral cyanosis. No pretibial edema present. Skin changes as above. There is minimal tenderness noted to palpation of the left shoulder joint anteriorly with preserved full range of motion. There is also tenderness noted to the patient's left dorsal wrist. No other tenderness of the left upper extremity noted. No new tenderness of the right upper extremity or right lower extremity. She does have tenderness in the anterior and posterior left knee joint without laxity. Decreased range of motion secondary to pain. +5/5 strength noted in UE/LE bilaterally. She is neurovascular intact distally. NEUROLOGIC - Cranial nerves II through XII grossly intact. Sensory intact to light touch throughout. PSYCH - A&Ox3 and cooperates fully with examiner. Pt is very pleasant and interacts well with examiner. Course Administered Medications Amlodipine Besylate (Norvasc) 5 mg PO DAILY [facility] Stop: 11/27/18 08:59 Last Admin: 10/31/18 08:44 Dose: 5 mg Admin: 10/30/18 09:17 Dose: 5 mg Admin: 10/29/18 08:37 Dose: 5 mg Admin: 10/28/18 07:42 Dose: 5 mg Aspirin (Ecotrin Ectab) 81 mg PO PM [facility] Stop: 11/27/18 08:59 Last Admin: 10/30/18 21:05 Dose: 81 mg Admin: 10/29/18 21:28 Dose: 81 mg Enoxaparin Sodium (Lovenox) 40 mg SQ QAM [facility] Stop: 11/30/18 08:59 Last Admin: 10/31/18 08:46 Dose: 40 mg Furosemide (Lasix) 20 mg PO DAILY [facility] Stop: 11/27/18 08:59 Last Admin: 10/31/18 08:46 Dose: 20 mg Admin: 10/30/18 09:17 Dose: 20 mg Admin: 10/29/18 08:34 Dose: 20 mg Admin: 10/28/18 07:42 Dose: 20 mg Isosorbide Mononitrate (Imdur Extended Rel) 60 mg PO DAILY [facility] Stop: 11/27/18 08:59 Last Admin: 10/31/18 08:46 Dose: 60 mg Admin: 10/30/18 09:16 Dose: 60 mg Admin: 10/29/18 08:35 Dose: 60 mg Admin: 10/28/18 07:42 Dose: 60 mg Levothyroxine Sodium (Synthroid) 50 mcg PO DAILYBB [facility] Stop: 11/28/18 12:59 Last Admin: 10/31/18 06:25 Dose: 50 mcg Admin: 10/30/18 05:45 Dose: 50 mcg Admin: 10/29/18 14:19 Dose: 50 mcg Magnesium Hydroxide (Milk Of Magnesia) 30 ml PO Q6H PRN PRN Reason: Constipation Stop: 11/26/18 23:32 Last Admin: 10/29/18 23:44 Dose: 30 ml Metoprolol Succinate (Toprol Xl) 25 mg PO PM [facility] Stop: 11/27/18 08:59 Last Admin: 10/30/18 21:07 Dose: 25 mg Admin: 10/29/18 21:28 Dose: Not Given Oxycodone/Acetaminophen (Percocet 10/325mg) 1 tab PO Q6 PRN PRN Reason: Pain Stop: 11/10/18 23:32 Last Admin: 10/30/18 23:28 Dose: 1 tab Admin: 10/29/18 15:47 Dose: 1 tab Admin: 10/29/18 07:35 Dose: 1 tab Admin: 10/28/18 19:19 Dose: 1 tab Admin: 10/28/18 09:36 Dose: 1 tab Admin: 10/28/18 03:36 Dose: 1 tab Pantoprazole Sodium (Protonix) 40 mg PO DAILY [facility] Stop: 11/27/18 08:59 Last Admin: 10/31/18 08:45 Dose: 40 mg Admin: 10/30/18 09:17 Dose: 40 mg Admin: 10/29/18 08:35 Dose: 40 mg Admin: 10/28/18 07:42 Dose: 40 mg Potassium Chloride (Klor-Con M20) 20 meq PO DAILY [facility] Stop: 11/27/18 08:59 Last Admin: 10/31/18 08:46 Dose: 20 meq Admin: 10/30/18 09:16 Dose: 20 meq Admin: 10/29/18 08:35 Dose: 20 meq Admin: 10/28/18 07:43 Dose: 20 meq Rosuvastatin Calcium (Crestor) 20 mg PO PM [facility] Stop: 11/27/18 08:59 Last Admin: 10/30/18 21:06 Dose: 20 mg Admin: 10/29/18 21:27 Dose: 20 mg Vitamin D (Vitamin D3) 2,000 units PO QAM [facility] Stop: 11/28/18 09:59 Last Admin: 10/31/18 08:45 Dose: 2,000 units Admin: 10/30/18 09:18 Dose: 2,000 units Admin: 10/29/18 10:08 Dose: 2,000 units Discontinued Medications Aspirin (Ecotrin Ectab) 81 mg PO DAILY [facility] Stop: 11/27/18 08:59 Last Admin: 10/28/18 07:42 Dose: 81 mg Celecoxib (Celebrex) 200 mg PO QAM [facility] Stop: 11/28/18 12:59 Last Admin: 10/30/18 09:16 Dose: 200 mg Admin: 10/29/18 14:19 Dose: 200 mg Heparin Sodium (Porcine) (Heparin Sodium (Porcine)) 5,000 units SQ Q12 [facility] Stop: 11/27/18 08:59 Last Admin: 10/30/18 09:18 Dose: 5,000 units Admin: 10/29/18 21:30 Dose: 5,000 units Admin: 10/29/18 08:43 Dose: Not Given Admin: 10/28/18 20:42 Dose: 5,000 units Admin: 10/28/18 08:47 Dose: 5,000 units Heparin Sodium (Porcine) (Heparin Sodium (Porcine)) 5,000 units SQ Q12 [facility] Stop: 10/30/18 21:01 Last Admin: 10/30/18 21:09 Dose: 5,000 units Hydromorphone HCl (Dilaudid) Confirm Administered Dose 0.5 mg .ROUTE .STK-MED ONE Stop: 10/28/18 12:35 Last Admin: 10/28/18 12:35 Dose: 0.5 mg Metoprolol Succinate (Toprol Xl) 25 mg PO DAILY [facility] Stop: 11/27/18 08:59 Last Admin: 10/28/18 07:42 Dose: 25 mg Miscellaneous (Order Awaiting Action) 1 ea N/A DAILY [facility] Stop: 11/27/18 08:59 Last Admin: 10/30/18 09:17 Dose: Not Given Admin: 10/29/18 08:36 Dose: Not Given Admin: 10/28/18 07:43 Dose: Not Given Miscellaneous (Order Awaiting Action) 1 ea N/A DAILY [facility] Stop: 11/27/18 08:59 Last Admin: 10/30/18 09:17 Dose: Not Given Admin: 10/29/18 08:37 Dose: Not Given Admin: 10/28/18 07:43 Dose: Not Given Morphine Sulfate (Morphine Sulfate) 2 mg IV Q3H PRN PRN Reason: Pain Stop: 11/10/18 23:32 Last Admin: 10/28/18 10:54 Dose: 2 mg Morphine Sulfate (Morphine Sulfate) Confirm Administered Dose 4 mg .ROUTE .STK- MED ONE Stop: 10/28/18 10:52 Last Admin: 10/28/18 11:43 Dose: Not Given Rosuvastatin Calcium (Crestor) 20 mg PO DAILY [facility] Stop: 11/27/18 08:59 Last Admin: 10/28/18 07:42 Dose: 20 mg Tramadol HCl (Ultram) 50 mg PO Q4H PRN PRN Reason: Pain Stop: 11/26/18 23:32 Last Admin: 10/28/18 12:16 Dose: 50 mg Admin: 10/28/18 07:41 Dose: 50 mg Medical Decision Making Laboratory Data Result diagrams: 10/31/18 05:51 10/30/18 05:58 Lab Results 10/28/18 10/29/18 10/29/18 Range/Units 07:14 05:50 05:50 WBC 7.13 (4.8-10.8) K/uL RBC 3.38 L (4.2-5.4) M/uL Hgb 10.3 L (12.0-16.0) g/dL Hct 31.4 L (37-47) % MCV 92.9 (80-100) fL MCH 30.5 (25-34) pg MCHC 32.8 (32-36) g/dL RDW Std Deviation 47.6 H (36.4-46.3) fL RDW Coeff of Myrna 14.0 (11.5-14.5) % Plt Count 122 L (130-400) K/uL MPV 10.8 H (7.4-10.4) fL PT 10.7 (9.0-12.0) Seconds INR 1.1 (0.9-1.1) Sodium 133 L (136-145) mmol/L Potassium 3.7 (3.5-5.1) mmol/L Chloride 101 (98-107) mmol/L Carbon Dioxide 27 (21-32) mmol/L Anion Gap 5.0 (3-11) BUN 21 H (7-18) mg/dl Creatinine 1.27 H (0.6-1.2) mg/dl Est Cr Clr Drug Dosing 35.5 ml/min Est GFR ( Amer) 47.1 Est GFR (Non-Af Amer) 40.7 BUN/Creatinine Ratio 16.5 (10-20) Glucose 95 (70-99) mg/dl Calcium 8.0 L (8.5-10.1) mg/dl Ferritin (8-388) ng/ml Vitamin B12 (211-911) pg/ml 25-OH Vitamin D Total (30-100) ng/ml Folate (>5.38) ng/ml TSH (0.300-4.500) uIu/ml 10/29/18 10/29/18 10/29/18 Range/Units 05:50 05:50 05:50 WBC (4.8-10.8) K/uL RBC (4.2-5.4) M/uL Hgb (12.0-16.0) g/dL Hct (37-47) % MCV (80-100) fL MCH (25-34) pg MCHC (32-36) g/dL RDW Std Deviation (36.4-46.3) fL RDW Coeff of Myrna (11.5-14.5) % Plt Count (130-400) K/uL MPV (7.4-10.4) fL PT (9.0-12.0) Seconds INR (0.9-1.1) Sodium (136-145) mmol/L Potassium (3.5-5.1) mmol/L Chloride (98-107) mmol/L Carbon Dioxide (21-32) mmol/L Anion Gap (3-11) BUN (7-18) mg/dl Creatinine (0.6-1.2) mg/dl Est Cr Clr Drug Dosing ml/min Est GFR ( Amer) Est GFR (Non-Af Amer) BUN/Creatinine Ratio (10-20) Glucose (70-99) mg/dl Calcium (8.5-10.1) mg/dl Ferritin 114.7 (8-388) ng/ml Vitamin B12 504 (211-911) pg/ml 25-OH Vitamin D Total (30-100) ng/ml Folate > 24.00 (>5.38) ng/ml TSH (0.300-4.500) uIu/ml 10/29/18 10/30/18 10/30/18 Range/Units 06:17 05:58 05:58 WBC 5.18 (4.8-10.8) K/uL RBC 3.58 L (4.2-5.4) M/uL Hgb 11.1 L (12.0-16.0) g/dL Hct 33.2 L (37-47) % MCV 92.7 (80-100) fL MCH 31.0 (25-34) pg MCHC 33.4 (32-36) g/dL RDW Std Deviation 46.9 H (36.4-46.3) fL RDW Coeff of Myrna 13.8 (11.5-14.5) % Plt Count 140 (130-400) K/uL MPV 10.7 H (7.4-10.4) fL PT (9.0-12.0) Seconds INR (0.9-1.1) Sodium 132 L (136-145) mmol/L Potassium 3.7 (3.5-5.1) mmol/L Chloride 99 (98-107) mmol/L Carbon Dioxide 29 (21-32) mmol/L Anion Gap 4.0 (3-11) BUN 22 H (7-18) mg/dl Creatinine 1.31 H (0.6-1.2) mg/dl Est Cr Clr Drug Dosing 34.5 ml/min Est GFR ( Amer) 45.4 Est GFR (Non-Af Amer) 39.2 BUN/Creatinine Ratio 16.5 (10-20) Glucose 93 (70-99) mg/dl Calcium 8.8 (8.5-10.1) mg/dl Ferritin (8-388) ng/ml Vitamin B12 (211-911) pg/ml 25-OH Vitamin D Total 25.2 L (30-100) ng/ml Folate (>5.38) ng/ml TSH 4.230 (0.300-4.500) uIu/ml 10/31/18 Range/Units 05:51 WBC 4.86 (4.8-10.8) K/uL RBC 3.53 L (4.2-5.4) M/uL Hgb 10.9 L (12.0-16.0) g/dL Hct 32.9 L (37-47) % MCV 93.2 (80-100) fL MCH 30.9 (25-34) pg MCHC 33.1 (32-36) g/dL RDW Std Deviation 47.5 H (36.4-46.3) fL RDW Coeff of Myrna 14.0 (11.5-14.5) % Plt Count 160 (130-400) K/uL MPV 10.5 H (7.4-10.4) fL PT (9.0-12.0) Seconds INR (0.9-1.1) Sodium (136-145) mmol/L Potassium (3.5-5.1) mmol/L Chloride (98-107) mmol/L Carbon Dioxide (21-32) mmol/L Anion Gap (3-11) BUN (7-18) mg/dl Creatinine (0.6-1.2) mg/dl Est Cr Clr Drug Dosing ml/min Est GFR ( Amer) Est GFR (Non-Af Amer) BUN/Creatinine Ratio (10-20) Glucose (70-99) mg/dl Calcium (8.5-10.1) mg/dl Ferritin (8-388) ng/ml Vitamin B12 (211-911) pg/ml 25-OH Vitamin D Total (30-100) ng/ml Folate (>5.38) ng/ml TSH (0.300-4.500) uIu/ml Imaging Data Radiologist's Impression: CT head/brain wo con CLINICAL HISTORY: 78 years-old Female presenting with Fall, head injury. TECHNIQUE: Multidetector CT imaging of the head was performed without the use of intravenous contrast. IV contrast: None. One or more dose lowering techniques were used consistent with the principles of ALARA (as low as reasonably achievable), including automatic exposure control, mA or kV adjustment to individual patient size, and/or use of iterative reconstruction. COMPARISON: None. CT DOSE (mGy.cm): The estimated cumulative dose is 537.48 mGy.cm. FINDINGS: Schedule Supervisor topogram: Unremarkable. Ventricles and sulci normal in size. No hemorrhage. Brain parenchyma normal in appearance with preserved armas-white differentiation. No acute territorial infarct. No mass effect or midline shift. No extra-axial fluid collection. Paranasal sinuses and mastoid air cells clear. Calvarium intact. Bilateral circle lenses are absent. IMPRESSION: 1. No acute intracranial abnormality. Electronically signed by: Capser Brock M.D. 10/27/2018 6:59 PM XR shoulder LT min 2V routine CLINICAL HISTORY: 78 years-old Female presenting with Fall, left shoulder, wrist and knee pain. TECHNIQUE: Internal rotation, external rotation, Grashey views of the left shoulder were obtained. COMPARISON: Correlation made to chest x-ray from 12/11/2016. FINDINGS: Osteopenia suspected. Glenohumeral and acromioclavicular joints congruent. Allowing for osteopenia, no acute fracture or malalignment. No advanced degenerative change. No radiographic soft tissue abnormality. IMPRESSION: Allowing for osteopenia, no acute osseous injury. Electronically signed by: Casper Brock M.D. 10/27/2018 6:39 PM XR wrist LT min 3V routine CLINICAL HISTORY: 78 years-old Female presenting with Fall, left shoulder, wrist and knee pain. TECHNIQUE: Frontal, bilateral oblique, and lateral views of the left wrist were obtained. COMPARISON: Correlation made to plain radiographs of the left hand from 2017. FINDINGS: Redemonstration of a chronic deformity of the distal radius, which is likely posttraumatic however, a radiolucency across the distal metaphysis is now evident consistent with an acute fracture. The fracture plane is immediately proximal to the distal radial ulnar joint. This does not appear to extend into the radiocarpal articulations. Degenerative changes of the distal radial ulnar joint. Underlying osteopenia. Ulnar styloid fracture is also likely acute. IMPRESSION: 1. Findings consistent with acute nondisplaced fracture of the distal radial metaphysis. No angulation or malalignment. This is an acute fracture on an underlying chronic posttraumatic deformity. 2. Acute appearing ulnar styloid fracture. 3. Osteopenia. Electronically signed by: Casper Brock M.D. 10/27/2018 6:44 PM XR knee LT 3V CLINICAL HISTORY: 78 years-old Female presenting with Fall, left shoulder, wrist and knee pain. TECHNIQUE: Frontal, lateral, and sunrise views of the left knee were obtained. COMPARISON: None. FINDINGS: Knee joint congruent, however, there is an abnormal appearance of the lateral joint space with possible compression of the lateral tibial plateau. Underlying osteopenia limits evaluation. No displaced fracture. Moderate knee joint effusion suspected. No malalignment. No patellar subluxation. No advanced degenerative change. Atherosclerosis suspected. IMPRESSION: Findings concerning for tibial plateau impaction fracture. Recommend noncontrast MR or, less ideally, CT. Electronically signed by: Casper Brock M.D. 10/27/2018 6:41 PM MDM Narrative Patient was seen and evaluated as above in room D5. Review was performed of nursing notes and vital signs. After obtaining a thorough history and physical examination the above work up was performed. She presents to us today status post fall. GCS 15. Given mechanism of injury a CT scan of the head was obtained. Results as above. This was negative. X-rays were then obtained of the involved regions. Shoulder is negative. Wrist and knee are positive for suspected fractures. The wrist was splinted with a volar splint. This was with good fit. Benefit versus risk of applying this versus sugar tong was discussed with the attending physician and it was felt that given the patient's scenario the volar would be best. In regard to the knee, the patient has minimal pain at rest but in a large deal of pain with weightbearing of which I do believe clinically correlates to likely a tibial plateau fracture. At this time I do not believe that an emergent MRI or CT scan is warranted, rather splinting for the concerning injury I believe is appropriate. Knee immobilizer provided. An ambulatory trial was had here with crutches and a walker as the patient was quite adamant that she does not want to stay and would like to try and go home. This was without success. I do believe that the patient will be better suited in the inpatient setting where she can undergo PT and OT evaluation with potential rehabilitation placement. Patient was happy with this plan. At this time of day PT and OT evaluations cannot be performed therefore patient will be admitted to the hospital pending these in the morning. I believe this is reasonable. She declined pain medication. She did have her nighttime meds with her and was able to take them. Case discussed with the attending physician and subsequently the hospitalist. Please refer to further documentation regarding her stay. In the evaluation and treatment of this patient, the following differential diagnoses were considered: Wrist Sprain, Wrist Fracture, Wrist Dislocation, Scapholunate Dissociation, Carpal Fracture, Metacarpal Fracture, Radial Styloid Process Fracture, Ulnar Styloid Process Fracture, or Carpal Tunnel Syndrome, Patellar Fracture, Tibial Plateau Fracture, Distal Femur Fracture, ACL Injury, PCL Injury, Collateral Ligament Injury, Pes Anserine Bursitis, Maisonneuve Fracture, among others. Attending Attestation: Robert Salinas MD independently saw and evaluated this patient and agree with history and physical is otherwise documented by the physician certified medical technician assistant. See their note for full details. Impression & Plan Fall, Wrist fracture, left, Closed fracture of tibial plateau Discharge Plan Visit Data *Final* Discharge Date/Time: 10/27/18 23:05 Chief Complaint: Fall Stated Complaint: FALL, TWISTED LEFT KNEE/HIP/WRIST ED Provider: Keegan Salinas ED Midlevel Provider: Jameson Gaming Discharge Problem: Fall, Wrist fracture, left, Closed fracture of tibial plateau Patient Disposition: Admitted As Inpatient Condition: Good Discharge Instructions Interventions: ED Discharge Assessment Last Done: 10/27/18 23:05
--- NOTE | 2018-10-27 22:20 | History & Physical Report ---
Date of Service October 27, 2018 Assessment & Plan (1) Wrist fracture, left: 78 y/o F Hx CAD, HTN, HLD, asthma. The pt suffered a mechanical fall onto her L side. She was unable to bear weight on her L leg and managed to crawl into her house to alert EMS. Imaging in the ER confirmed fractures of the L distal radius, ulna and tibial plateau. She was unable to ambulate when this was attempted with a walker in the ER, and is therefore admitted for transfer to rehab. She denies any symptoms preceding her fall such as CP, palpitations or lightheadedness. 1) Multiple fractures following a fall - L tibial plateau, L radial, L ulnar - the pt is unable to ambulate without full assistance at present. We will consult PT/OT as she will need placement. Orthopedics is consulted for evaluation, although it does not appear that she will require surgery at present. Analgesics provided. 2) CAD - cont ASA, Imdur, B maylin, Statin, NTG as needed 3) HTN - cont Norvasc, Metoprolol, Lasix 4) HLD - cont Statin 5) Asthma - Xopenex PRN Full code - Heparin prophylaxis Total time for this admit including review of labs, meds, imaging, records - discussion [facility] pt and ER attending - 34 min (2) Closed fracture of tibial plateau: History of Present Illness Chief Complaint: Fall - fracture if tibia and radius Primary Care Provider: Casimiro Flores M.D. 78 y/o F Hx CAD, HTN, HLD. asthma. The pt suffered a mechanical fall onto her L side. She was unable to bear weight on her L leg and managed to crawl into her house to alert EMS. Imaging in the ER confirmed fractures of the L distal radius, ulna and tibial plateau. She was unable to ambulate when this was attempted with a walker in the ER, and is therefore admitted for transfer to rehab. She denies any symptoms preceding her fall such as CP, palpitations or lightheadedness. PMH: 1) CAD - she may have had a posterior DE. States that "an artery in the back of her heart is clogged up". She describes being told that she had collateral circulation following a cath. 2) HTN 3) HLD 4) Asthma 5) History of Lyme disease 6) Osteoporosis 7) GERD 8) History of uterine cancer 9) Following her DE, the pt states she had an EF of 35% and states that it is now 55% 10) Reports valvular heart disease but could not provide specifics Surgical: 1) Rotator cuff surgery 2017 2) Appendectomy 3) Hysterectomy Social: No history of drinking or smoking Family: Noncontributory to current complaint Allergies Allergy/AdvReac Type Severity Reaction Status Date / Time No Known Allergies Allergy Unverified 10/27/18 18:53 Home Medications Home Medications Medication Instructions Recorded Confirmed Type amlodipine [Norvasc] 5 mg PO DAILY 10/27/18 10/27/18 History aspirin [Aspir-81] 81 mg PO DAILY 10/27/18 10/27/18 History coenzyme Q10 [Co Q-10] 100 mg PO DAILY 10/27/18 10/27/18 History ergocalciferol (vitamin D2) 50,000 unit PO WK 10/27/18 10/27/18 History [Vitamin D2] erythromycin 1 applic OPHTHALMIC (EYE) UD 10/27/18 10/27/18 History furosemide [Lasix] 20 mg PO DAILY 10/27/18 10/27/18 History isosorbide mononitrate 60 mg PO DAILY 10/27/18 10/27/18 History levalbuterol tartrate [Xopenex HFA] 2 puff INHALATION UD 10/27/18 10/27/18 History metoprolol succinate [Toprol XL] 25 mg PO DAILY 10/27/18 10/27/18 History multivitamin 1 tab PO DAILY 10/27/18 10/27/18 History nitroglycerin [Nitrostat] 0.3 mg SUBLINGUAL UD PRN 10/27/18 10/27/18 History oxycodone-acetaminophen [Percocet] 1 tab PO Q6 PRN 10/27/18 10/27/18 History pantoprazole [Protonix] 40 mg PO DAILY 10/27/18 10/27/18 History potassium chloride [Klor-Con M20] 20 meq PO DAILY 10/27/18 10/27/18 History rosuvastatin [Crestor] 20 mg PO DAILY 10/27/18 10/27/18 History vitamin B complex 1 tab PO DAILY 10/27/18 10/27/18 History Past Med/Surg History Social History Feels Safe at Home: Yes Smoking Status: Never smoker Preferred Language: [place] Review of Systems Gen: Denies fevers, night sweats, rigors, fatigue, malaise, weight loss/gain ENT: Denies congestion, throat pain, hearing loss Eyes: Denies acute visual changes CV: Denies CP, palpitations Pulmonary: Denies SOB, cough, wheezing GI: Denies N/V, diarrhea, constipation Neuro: Denies acute or unilateral weakness, acute gait impairment, headache or acute visual changes Musculoskeletal: Pain at fracture sites Endocrine: Denies polydipsia, polyuria Skin: Denies acute rashe or ulcers Physical Exam 2 Vital Signs (Past 24 Hours): Last Vital Signs Temp 37.3 C 10/27/18 17:48 Pulse 96 H 10/27/18 21:08 Resp 18 10/27/18 21:08 BP 120/87 10/27/18 21:08 Pulse Ox 91 10/27/18 21:08 Physical Exam: General: Pleasant, elderly F, AAO x 3, no distress ENT: No erythema or exudates, no thrush Eyes: EVA, EOMI Head and neck: Normocephalic, atraumatic, No JVD, neck is supple. Chest/heart: Nontender, S1,2, RRR, no murmurs, no gallops Lungs: CTAB, no wheezing or crackles Abdomen: Nontender, nondistended, BS+ Neuro: AAO x 3, speech is clear, no unilateral weakness or loss of sensation, coordination intact Musculoskeletal: Affected extremities are splinted - pulses + Skin: No acute rashes or ulcers Results & Data Diagnostic Findings XR wrist: 1. Findings consistent with acute nondisplaced fracture of the distal radial metaphysis. No angulation or malalignment. This is an acute fracture on an underlying chronic posttraumatic deformity. 2. Acute appearing ulnar styloid fracture. 3. Osteopenia. XR knee: Findings concerning for tibial plateau impaction fracture. _ (1) Wrist fracture, left Encounter type: Fracture healing: Fracture type: (2) Closed fracture of tibial plateau Encounter type: initial encounter Fracture healing: Laterality: left Qualified Code(s): S82.142A - Displaced bicondylar fracture of left tibia, initial encounter for closed fracture
[2018-10-27] MEDS ORDERED: MoRPHine SULFATE 2 MG/ML CARP IV PRN (23:33)
[2018-10-27] MEDS ORDERED: POLYETHYLENE (MIRALAX) 17 GM PACK PO PRN (23:33)
[2018-10-27] MEDS ORDERED: NITROGLYCERIN 0.3 MG/1 TAB 100 TAB BTL SL PRN (23:33)
[2018-10-27] MEDS ORDERED: ACETAMINOPHEN 325 MG TAB PO PRN (23:33)
[2018-10-27] MEDS ORDERED: MAGNESIUM HYDROXIDE SUSP 30 ML UDC PO PRN (23:33)
[2018-10-27] MEDS ORDERED: ONDANSETRON INJ 2 MG/ML 2 ML VIAL IV PRN (23:33)
[2018-10-27] MEDS ORDERED: ALUMINUM/MAGNESIUM SUSP 30 ML UDC PO PRN (23:33)
[2018-10-28] MEDS: OXYCODONE/ACETAMINOPHEN 10-325 TAB PO PRN ×3 (03:36→19:19)
[2018-10-28 07:29] LABS: INR 1.1 (0.9-1.1); Prothrombin Time 10.7 Seconds (9.0-12.0)
[2018-10-28] MEDS: TRAMADOL HCL 50 MG TABLET PO PRN ×2 (07:41→12:16)
[2018-10-28] MEDS: ISOSORBIDE MONO EXTENDED REL 60 MG TABCR PO SCH (07:42)
[2018-10-28] MEDS: FUROSEMIDE 20 MG TAB PO SCH (07:42)
[2018-10-28] MEDS: AMLODIPINE BESYLATE 5 MG TAB PO SCH (07:42)
[2018-10-28] MEDS: PANTOprazole 40 MG TAB PO SCH (07:42)
[2018-10-28] MEDS: POTASSIUM CHLORIDE 20 MEQ TABCR PO SCH (07:43)
[2018-10-28] MEDS: HEPARIN SOD 5,000 UNIT/0.5 ML VIAL SQ SCH ×2 (08:47→20:42)
[2018-10-28] MEDS ORDERED: ROSUVASTATIN CALCIUM 20 MG TAB PO SCH (09:00)
[2018-10-28] MEDS ORDERED: METOPROLOL SUCC 25MG EXT REL TAB PO SCH (09:00)
[2018-10-28] MEDS ORDERED: ASPIRIN 81 MG ECTAB PO SCH (09:00)
[2018-10-28] MEDS ORDERED: MoRPHine SULFATE 4 MG/ML 1 ML CARP\\VIAL ONE (10:51)
--- NOTE | 2018-10-28 11:05 | CT Scan Report ---
LEFT WRIST CT CT DOSE: 340.96 mGy.cm HISTORY: evaluate distal radius fracture TECHNIQUE: Multiaxial CT images of the left wrist were performed and reformatted in the sagittal and coronal plane without the use of contrast. A dose lowering technique was utilized adhering to the pr inciples of FABIEN. COMPARISON: Left wrist radiograph 10/27/2018. FINDINGS: There is confirmation of the slightly impacted fracture within the distal metaphysis of the radius. This is a transverse fracture and does not clearly extend to the articular surface. No fract ures within the distal ulna or carpal bones. There is cystic change within the distal ulna and at the distal radioulnar joint which is likely due to long-standing degenerative change. The scapholunate i nterval is intact. The bones are osteopenic. There may be minimal dorsal angulation of the distal rad ius. Overlying splint material is noted. There is an associated joint effusion and soft tissue swelli ng. This is likely posttraumatic. IMPRESSION: Confirmation of the slightly impacted transverse fracture through the distal metaphysis of the left r adius as described above. No additional fractures identified within the left wrist. Electronically signed by: Francisco Brooks M.D. 10/28/2018 11:04 AM
--- NOTE | 2018-10-28 11:23 | CT Scan Report ---
CT knee LT wo con HISTORY: 78 years-old Female evaluate tibial plateau fracture acute left knee pain with tibial plate au fracture COMPARISON: Left knee radiographs 10/27/2018 TECHNIQUE: Multiple axial CT images of the left knee were obtained without use of IV contrast. Starr l and sagittal reformatted images were obtained from the axial data set and were submitted for review . Additional 3-D rendering images were generated from a separate workstation. A dose lowering techniq ue was used consistent with the principals of ALARA. FINDINGS: Demineralized appearance of the bones. Mild tricompartmental osteoarthritis. Mild marginal spurring a bout the tibial spines. The distal femur, patella and proximal fibula appear intact. Acute fracture a bout the central and posterior aspect of the lateral tibial plateau is noted with approximately 1.2 c m articular depression/cortical impaction. No definite fracture extension into the lateral tibial spi ne. Medial tibial plateau appears intact. Proximal tibial metaphysis and diaphysis also appear intact . 7 mm bone island about the medial proximal tibial metaphysis. Moderate sized joint effusion. Mild to moderate subcutaneous edema about the anterior knee. Study is not tailored to assess the intrinsic structures of the knee. IMPRESSION: 1. Acute fracture of the central and posterior aspect of the lateral tibial plateau with 1.2 cm artic ular depression. 2. Moderate joint effusion. 3. Demineralized appearance of the bones with mild tricompartmental osteoarthritis. The above report was generated using voice recognition software. It may contain grammatical, syntax o r spelling errors. Electronically signed by: Ramin Pollock M.D. 10/28/2018 11:20 AM
[2018-10-28] MEDS ORDERED: HYDROmorphone INJ 0.5 MG/0.5 ML SYR IV PRN (12:23)
[2018-10-28] MEDS ORDERED: HYDROmorphone INJ 0.5 MG/0.5 ML SYR ONE (12:34)
--- NOTE | 2018-10-28 20:47 | Hospitalist Progress Note ---
Date of Service October 28, 2018 Assessment & Plan (1) Wrist fracture, left: nonoperative Rx. s/p splint placement. ortho has seen - again nonoperative Rx recommended. pain control. will need SNF placement due to NWB status to LLE. (2) Closed fracture of tibial plateau: Left leg. 6 weeks NWB status. Nonoperative Rx recommended by ortho. Immobilizer in place. PT OT placement at SNF check vitamin D level (3) Fall: accidental no preceding syncope, cardiac symptoms, etc prior to fall (4) CAD (coronary artery disease): no ischemic sx's at this time cont asa, BB, statin, etc (5) Asthma: history of not in exacerbation at this time (6) Osteopenia: patient self-reports this will need repeat DEXA after this stay check vitamin D level in AM (7) Essential hypertension: controlled (8) Chronic pain syndrome: 2nd to severe OA takes chronic narcotics at home - 10mg percocet at a time multiple times each day she thus has tolerance to narcotics this is why we had to resort to dilaudid for pain control likely will need higher dose of oxycodone at d/c for pain control (9) DVT prophylaxis: heparin BID auth for [facility] pending Subjective considerable pain in left wrist today ultram, morphine, percocet 10s did "not touch" the pain she confirms she has been taking percocet 10's "for years" - prescribed by PCP - due to severe osteoarthritis denies pain in leg Constitutional: no weakness Respiratory: no dyspnea Cardiovascular: no chest pain Neurologic: no syncope Physical Exam 2 Vital Signs (Past 24 Hours): Last Vital Signs Temp 37.2 C 10/28/18 15:36 Pulse 62 10/28/18 17:38 Resp 18 10/28/18 15:36 BP 100/52 L 10/28/18 17:38 Pulse Ox 91 10/28/18 17:38 Constitutional: well developed, well nourished and average body habitus; no acute distress and not ill appearing ENMT: external ear and nose normal, oropharynx normal Respiratory: normal respiratory effort, lungs clear to auscultation Cardiovascular: RRR, no murmur, no edema Heart Sounds: normal S1 and normal S2 Vessels: posterior tibial pulses present and dorsalis pedis pulses present; no JVD Gastrointestinal (Abdomen): normal bowel sounds, soft, nontender, no hepatosplenomegaly Musculoskeletal: left wrist in splint; left knee in immobilizer Psychiatric: A+Ox3, euthymic affect Results & Data Laboratory Results Laboratory Results - last 24 hr 10/28/18 07:14 PT 10.7 INR 1.1 _ (1) Wrist fracture, left Encounter type: Fracture healing: Fracture type: (2) Closed fracture of tibial plateau Encounter type: initial encounter Fracture healing: Laterality: left Qualified Code(s): S82.142A - Displaced bicondylar fracture of left tibia, initial encounter for closed fracture (3) Fall Encounter type:
--- NOTE | 2018-10-29 02:27 | Consultation Report ---
DATE OF CONSULTATION: 10/28/2018 HISTORY OF PRESENT ILLNESS: This is a 78-year-old female seen at the request of Dr. Krishna Goyal and Dr. Casimiro Flores for a left wrist fracture and left tibial plateau fracture. Apparently, the patient was in her normal state of health earlier today and she had a mechanical fall on her left side while at home. Unable to bear weight on her left leg and she is unable to use her left wrist due to some significant discomfort. She was able to crawl into her home to alert EMS and she was transported to [facility]. She had been seen by the emergency physician who evaluated radiographs of her left wrist and left knee and noted to have fractures of both. She was admitted to the hospital under the care of the hospitalist service due to other mitigating medical circumstances. The patient had no loss of consciousness, no head or neck trauma. No other known associated injuries. PAST MEDICAL HISTORY: Coronary artery disease, hypertension, hyperlipidemia, asthma, history of Lyme disease, osteoporosis, GERD, history of uterine cancer, myocardial infarction with ejection fraction of 35%, increased to 55% most recently, valvular heart disease. PAST SURGICAL HISTORY: Rotator cuff repair in 2017, appendectomy, hysterectomy. ALLERGIES: No known drug allergies. MEDICATIONS: Please note the medication list provided in the medical record. SOCIAL HISTORY: Demonstrates no history of alcohol or tobacco use, denies drug use. She is retired. 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 Lives with her family. PHYSICAL EXAMINATION: This is a 78-year-old female lying supine in her hospital room bed. She is alert and oriented x3. Speech is clear and fluent. Affect is appropriate. She is in no acute distress. She has a left knee immobilizer and a left wrist splint in place. Examination of the left wrist demonstrates a well-formed splint. Fingers are pink and warm. Cap refill is brisk, less than 2 seconds. Radial, ulnar, and median nerve sensory and motor function are intact. She is tender to palpation of the distal radius and ulna palpated through the splint. Limitation of range of motion due to the splinting. Examination of the left knee demonstrates well-placed well-padded knee immobilizer. Dorsalis pedis, posterior tibial pulse 2/4. Skin is warm, dry, and intact. Cap refill less than 2 seconds, brisk. Limited range of motion due to pain and guarding of the left knee. No significant malalignment is noted. RADIOGRAPHIC DATA: Radiographs of the left distal radius demonstrate a Colles-type fracture, extraarticular, with osteopenia with slight dorsal angulation of the left wrist with fracture of the ulnar styloid. CT scan demonstrates same. Radiographs of the left knee demonstrate a minimally displaced left tibial plateau fracture involving primarily the posterolateral aspect of the proximal tibia. Minimal displacement, no significant malalignment. Osteopenia is noted with some degenerative changes also noted with chondrocalcinosis of the meniscus. CT scan demonstrates fracture of the tibial plateau, primarily the posterolateral aspect, without significant malalignment. IMPRESSION: 1. Left tibial plateau fracture, minimal displacement, primarily involving the posterior lateral aspect of the tibial plateau. 2. Left distal radius Colles fracture with minimal dorsal angulation and ulnar styloid fracture status post fall. RECOMMENDATIONS: Closed treatment, left tibial plateau fracture, with maintenance of nonweightbearing for a period of 6 weeks. May remove the brace while in bed or in the shower. She may engage in gentle range of motion exercises, nonweightbearing. Regarding the left distal radius and ulnar fracture, we will apply a well-molded well-formed short arm cast to the left upper extremity after gentle manipulation for closed treatment. Maintain ice to the left knee and the left distal radius. Recommended placement due to persistent ambulatory dysfunction per the department of medicine and will follow with you. She should follow up in clinic as an outpatient in 7-10 days for repeat x-rays of the left tibial plateau and the left distal radius and ulna. Thank you for the opportunity to consult in the care of this patient.
[2018-10-29 06:15] LABS: Hematocrit (blood only) 31.4 % (37-47); Hemoglobin 10.3 g/dL (12.0-16.0); Mean Corpuscular Hgb Conc 32.8 g/dL (32-36); Mean Corpuscular Volume 92.9 fL (80-100); Mean Platelet Volume 10.8 fL (7.4-10.4); Platelet Count 122 K/uL (130-400); RDW Standard Deviation 47.6 fL (36.4-46.3); Red Blood Count 3.38 M/uL (4.2-5.4); White Blood Count 7.13 K/uL (4.8-10.8)
[2018-10-29 06:53] LABS: BUN Creatinine Ratio 16.5 (10-20); Creatinine Clr Calc Pharmacy 35.5 ml/min; Est GFR (African American) 47.1; Est GFR (Non-African American) 40.7; Potassium 3.7 mmol/L (3.5-5.1)
[2018-10-29] MEDS: OXYCODONE/ACETAMINOPHEN 10-325 TAB PO PRN ×2 (07:35→15:47)
[2018-10-29] MEDS: FUROSEMIDE 20 MG TAB PO SCH (08:34)
[2018-10-29] MEDS: ISOSORBIDE MONO EXTENDED REL 60 MG TABCR PO SCH (08:35)
[2018-10-29] MEDS: POTASSIUM CHLORIDE 20 MEQ TABCR PO SCH (08:35)
[2018-10-29] MEDS: PANTOprazole 40 MG TAB PO SCH (08:35)
[2018-10-29] MEDS: AMLODIPINE BESYLATE 5 MG TAB PO SCH (08:37)
[2018-10-29] MEDS: HEPARIN SOD 5,000 UNIT/0.5 ML VIAL SQ SCH ×2 (08:43→21:30)
[2018-10-29] MEDS: CHOLECALCIFEROL 1,000 UNITS TAB PO SCH (10:08)
[2018-10-29] MEDS: CeleBREX 200 MG CAP PO SCH (14:19)
[2018-10-29] MEDS: LEVOTHYROXINE SODIUM 50 MCG TABLET PO SCH (14:19)
[2018-10-29] MEDS ORDERED: Nursing to Pharmacy Communication ONE (20:30)
[2018-10-29] MEDS: ROSUVASTATIN CALCIUM 20 MG TAB PO SCH (21:27)
[2018-10-29] MEDS: METOPROLOL SUCC 25MG EXT REL TAB PO SCH (21:28)
[2018-10-29] MEDS: ASPIRIN 81 MG ECTAB PO SCH (21:28)
--- NOTE | 2018-10-29 21:54 | Hospitalist Progress Note ---
Date of Service October 29, 2018 Assessment & Plan (1) Wrist fracture, left: s/p splint. ortho has seen - nonoperative Rx recommended. pain improved today. will need SNF placement due to NWB status to LLE. (2) Closed fracture of tibial plateau: Left leg. 6 weeks NWB status. Nonoperative Rx recommended by ortho. Immobilizer in place. PT OT placement at SNF (3) Fall: accidental no preceding syncope, cardiac symptoms, etc prior to fall (4) CAD (coronary artery disease): no ischemic sx's at this time cont asa, BB, statin, etc (5) Asthma: history of not in exacerbation at this time (6) Osteopenia: patient self-reports this will need repeat DEXA after this stay has mild vitamin D insufficiency - place on vit D supplementation (7) Essential hypertension: controlled (8) Chronic pain syndrome: 2nd to severe OA takes chronic narcotics at home - 10mg percocet at a time multiple times each day she thus has tolerance to narcotics this is why we had to resort to dilaudid for pain control at times likely will need higher dose of oxycodone at d/c for pain control (9) Anemia: ferritin, b12, folate all wnl anemia is normocytic and mild repeat CBC in am for stability outpatient work-up recommended (10) Hypothyroidism: check TSH in am cont synthroid (11) Chronic kidney disease, stage 3a: may have CKD stage 3 repeat BMP in am to recheck Cr and CrCl (12) Vitamin D insufficiency: 2000 IU of vitamin D daily level was about 25 (13) DVT prophylaxis: heparin BID auth for [facility] pending suspect she will go to [facility] on Wednesday Subjective pain improved in left wrist today no other complaints during the visit when I mentioned to her that her labs showed mild anemia she reported a history of such "years ago" but nothing recent to her knowledge she was told years ago she was b12 deficient (but level this admission was normal) awaiting auth for [facility] using platform walker for ambulation Respiratory: no dyspnea Cardiovascular: no chest pain Gastrointestinal: no abdominal pain Physical Exam 2 Vital Signs (Past 24 Hours): Last Vital Signs Temp 37.1 C 10/29/18 14:52 Pulse 60 10/29/18 21:25 Resp 20 10/29/18 14:52 BP 95/61 L 10/29/18 21:25 Pulse Ox 94 10/29/18 14:52 Constitutional: well developed, well nourished and average body habitus; no acute distress and not ill appearing ENMT: external ear and nose normal, oropharynx normal Respiratory: normal respiratory effort, lungs clear to auscultation Cardiovascular: RRR, no murmur, no edema Heart Sounds: normal S1 and normal S2 Vessels: posterior tibial pulses present and dorsalis pedis pulses present; no JVD Gastrointestinal (Abdomen): normal bowel sounds, soft, nontender, no hepatosplenomegaly Musculoskeletal: left wrist in splint; left knee in immobilizer; less swelling in fingers of left hand today Psychiatric: A+Ox3, euthymic affect Results & Data Laboratory Results Laboratory Results - last 24 hr 10/29/18 10/29/18 10/29/18 05:50 05:50 05:50 WBC 7.13 RBC 3.38 L Hgb 10.3 L Hct 31.4 L MCV 92.9 MCH 30.5 MCHC 32.8 RDW Std Deviation 47.6 H RDW Coeff of Myrna 14.0 Plt Count 122 L MPV 10.8 H Sodium 133 L Potassium 3.7 Chloride 101 Carbon Dioxide 27 Anion Gap 5.0 BUN 21 H Creatinine 1.27 H Est Cr Clr Drug Dosing 35.5 Est GFR ( Amer) 47.1 Est GFR (Non-Af Amer) 40.7 BUN/Creatinine Ratio 16.5 Glucose 95 Calcium 8.0 L Ferritin Vitamin B12 504 25-OH Vitamin D Total Folate 10/29/18 10/29/18 10/29/18 05:50 05:50 06:17 WBC RBC Hgb Hct MCV MCH MCHC RDW Std Deviation RDW Coeff of Myrna Plt Count MPV Sodium Potassium Chloride Carbon Dioxide Anion Gap BUN Creatinine Est Cr Clr Drug Dosing Est GFR ( Amer) Est GFR (Non-Af Amer) BUN/Creatinine Ratio Glucose Calcium Ferritin 114.7 Vitamin B12 25-OH Vitamin D Total 25.2 L Folate > 24.00 _ (1) Wrist fracture, left Encounter type: Fracture healing: Fracture type: (2) Closed fracture of tibial plateau Encounter type: initial encounter Fracture healing: Laterality: left Qualified Code(s): S82.142A - Displaced bicondylar fracture of left tibia, initial encounter for closed fracture (3) Fall Encounter type:
[2018-10-29] MEDS ORDERED: BISACODYL 10 MG SUPP PR PRN (22:37)
[2018-10-30] MEDS: LEVOTHYROXINE SODIUM 50 MCG TABLET PO SCH (05:45)
[2018-10-30 06:36] LABS: Hematocrit (blood only) 33.2 % (37-47); Hemoglobin 11.1 g/dL (12.0-16.0); Mean Corpuscular Hgb Conc 33.4 g/dL (32-36); Mean Corpuscular Volume 92.7 fL (80-100); Mean Platelet Volume 10.7 fL (7.4-10.4); Platelet Count 140 K/uL (130-400); RDW Coefficient of Variation 13.8 % (11.5-14.5); RDW Standard Deviation 46.9 fL (36.4-46.3); Red Blood Count 3.58 M/uL (4.2-5.4); White Blood Count 5.18 K/uL (4.8-10.8)
[2018-10-30 07:02] LABS: BUN Creatinine Ratio 16.5 (10-20); Calcium 8.8 mg/dl (8.5-10.1); Creatinine Clr Calc Pharmacy 34.5 ml/min; Est GFR (African American) 45.4; Est GFR (Non-African American) 39.2; Potassium 3.7 mmol/L (3.5-5.1)
[2018-10-30] MEDS: POTASSIUM CHLORIDE 20 MEQ TABCR PO SCH (09:16)
[2018-10-30] MEDS: CeleBREX 200 MG CAP PO SCH (09:16)
[2018-10-30] MEDS: ISOSORBIDE MONO EXTENDED REL 60 MG TABCR PO SCH (09:16)
[2018-10-30] MEDS: PANTOprazole 40 MG TAB PO SCH (09:17)
[2018-10-30] MEDS: FUROSEMIDE 20 MG TAB PO SCH (09:17)
[2018-10-30] MEDS: AMLODIPINE BESYLATE 5 MG TAB PO SCH (09:17)
[2018-10-30] MEDS: HEPARIN SOD 5,000 UNIT/0.5 ML VIAL SQ SCH (09:18)
[2018-10-30] MEDS: CHOLECALCIFEROL 1,000 UNITS TAB PO SCH (09:18)
--- NOTE | 2018-10-30 16:34 | Hospitalist Progress Note ---
Date of Service October 30, 2018 Assessment & Plan (1) Wrist fracture, left: With Colle's fracture Now in short cast ortho has seen - nonoperative Rx recommended. pain improved will need SNF placement due to NWB status to LLE. -continue pain management with percocet prn f/u with Ortho in 1 week (2) Closed fracture of tibial plateau: Left leg. 6 weeks NWB status. Nonoperative Rx recommended by ortho. Immobilizer in place, but can remove while in bed and with showering. PT/OT placement at SNF -f/u with Ortho in 1 week -pain control with percocet prn -given relative immobility, will recommend 2 weeks of Lovenox 40mg SQ daily after discharge (3) Fall: accidental no preceding syncope, cardiac symptoms, etc prior to fall (4) CAD (coronary artery disease): Has h/o [place] previoulsy, cardiac cath in 2017 showed what sounds like RCA occlusion? Had collaterals, no stents placed. 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 takes chronic narcotics at home - 10mg percocet at a time multiple times each day she thus has tolerance to narcotics this is why we had to resort to dilaudid for pain control initially, but now only requiring her usual doses of percocet -continue current percocet dosing prn (9) Anemia: ferritin, b12, folate all wnl anemia is normocytic and mild repeat CBC today with increased hgb at 11.1 Could be anemia of chronic kidney disease outpatient work-up recommended (10) Hypothyroidism: TSH normal at 4.23 cont synthroid (11) Chronic kidney disease, stage 3a: GFR around 36 since 2017 -avoid nephrotoxins -renally dose medications -should have routine outpatient f/u on this -avoid all NSAIDs-would dc Celebrex (12) Vitamin D insufficiency: 2000 IU of vitamin D daily level was about 25 (13) DVT prophylaxis: heparin BID--> will change to Lovenox in the AM and continue x 2 weeks auth for [facility] pending suspect she will go to [facility] on Wednesday-discussed with Hydrodynamics Professor today Subjective Doing well today, less pain. Moved her bowels today. Denies chest pain or SOB. Is korin po. Is able to ambulate using the walker. Review of Systems All systems reviewed & are unremarkable except as noted in HPI & below Physical Exam 2 Vital Signs (Past 24 Hours): Last Vital Signs Temp 37.0 C 10/30/18 14:54 Pulse 77 10/30/18 14:54 Resp 20 10/30/18 14:54 BP 95/62 L 10/30/18 14:54 Pulse Ox 94 10/30/18 14:54 Constitutional: WD/WN, vitals as above Eyes: PERRL, conjunctivae normal, anicteric sclerae Neck: trachea midline, no thyromegaly Respiratory: normal respiratory effort, lungs clear to auscultation Cardiovascular: RRR, no murmur, no edema Gastrointestinal (Abdomen): normal bowel sounds, soft, nontender, no hepatosplenomegaly Musculoskeletal: Extremities: + extremities abnormal to inspection (left forearm in short cast, fingers mobile, no edema,sensation intact to lt touch; left LE in knee immobilizer, able to dorsiflex and plantarflex foot and toes), no cyanosis and no clubbing Skin: no rashes, warm and dry Neurologic: moves all extremities and awake; no focal motor deficits Psychiatric: A+Ox3, euthymic affect Results & Data Laboratory Results 10/30/18 10/30/18 Range/Units 05:58 05:58 WBC 5.18 (4.8-10.8) K/uL RBC 3.58 L (4.2-5.4) M/uL Hgb 11.1 L (12.0-16.0) g/dL Hct 33.2 L (37-47) % MCV 92.7 (80-100) fL MCH 31.0 (25-34) pg MCHC 33.4 (32-36) g/dL RDW Std Deviation 46.9 H (36.4-46.3) fL RDW Coeff of Myrna 13.8 (11.5-14.5) % Plt Count 140 (130-400) K/uL MPV 10.7 H (7.4-10.4) fL Sodium 132 L (136-145) mmol/L Potassium 3.7 (3.5-5.1) mmol/L Chloride 99 (98-107) mmol/L Carbon Dioxide 29 (21-32) mmol/L Anion Gap 4.0 (3-11) BUN 22 H (7-18) mg/dl Creatinine 1.31 H (0.6-1.2) mg/dl Est Cr Clr Drug Dosing 34.5 ml/min Est GFR ( Amer) 45.4 Est GFR (Non-Af Amer) 39.2 BUN/Creatinine Ratio 16.5 (10-20) Glucose 93 (70-99) mg/dl Calcium 8.8 (8.5-10.1) mg/dl TSH 4.230 (0.300-4.500) uIu/ml _ (1) Wrist fracture, left Encounter type: subsequent encounter Fracture healing: with routine healing Fracture type: closed Qualified Code(s): S62.102D - Fracture of unspecified carpal bone, left wrist, subsequent encounter for fracture with routine healing (2) Closed fracture of tibial plateau Encounter type: initial encounter Fracture healing: Laterality: left Qualified Code(s): S82.142A - Displaced bicondylar fracture of left tibia, initial encounter for closed fracture (3) Fall Encounter type: subsequent encounter Qualified Code(s): W19.XXXD - Unspecified fall, subsequent encounter (4) CAD (coronary artery disease) Coronary Disease-Associated Artery/Lesion type: [place] artery [place] vs. transplanted heart: [place] heart Associated angina: without angina Qualified Code(s): I25.10 - Atherosclerotic heart disease of [place] coronary artery without angina pectoris (5) Asthma Asthma severity: mild Asthma persistence: intermittent Asthma complication type: uncomplicated Qualified Code(s): J45.20 - Mild intermittent asthma, uncomplicated (6) Osteopenia Osteopenia location: forearm Laterality: left Qualified Code(s): M85.832 - Other specified disorders of bone density and structure, left forearm (7) Anemia Anemia type: unspecified type Qualified Code(s): D64.9 - Anemia, unspecified (8) Hypothyroidism Hypothyroidism type: acquired Qualified Code(s): E03.9 - Hypothyroidism, unspecified
[2018-10-30] MEDS ORDERED: HEPARIN SOD 5,000 UNIT/0.5 ML VIAL SQ SCH (21:00)
[2018-10-30] MEDS: ASPIRIN 81 MG ECTAB PO SCH (21:05)
[2018-10-30] MEDS: ROSUVASTATIN CALCIUM 20 MG TAB PO SCH (21:06)
[2018-10-30] MEDS: METOPROLOL SUCC 25MG EXT REL TAB PO SCH (21:07)
[2018-10-30] MEDS: OXYCODONE/ACETAMINOPHEN 10-325 TAB PO PRN (23:28)
[2018-10-31 06:02] LABS: Hematocrit (blood only) 32.9 % (37-47); Hemoglobin 10.9 g/dL (12.0-16.0); Mean Corpuscular Hgb Conc 33.1 g/dL (32-36); Mean Corpuscular Volume 93.2 fL (80-100); Mean Platelet Volume 10.5 fL (7.4-10.4); Platelet Count 160 K/uL (130-400); RDW Standard Deviation 47.5 fL (36.4-46.3); Red Blood Count 3.53 M/uL (4.2-5.4); White Blood Count 4.86 K/uL (4.8-10.8)
[2018-10-31] MEDS: LEVOTHYROXINE SODIUM 50 MCG TABLET PO SCH (06:25)
[2018-10-31] MEDS: AMLODIPINE BESYLATE 5 MG TAB PO SCH (08:44)
[2018-10-31] MEDS: PANTOprazole 40 MG TAB PO SCH (08:45)
[2018-10-31] MEDS: CHOLECALCIFEROL 1,000 UNITS TAB PO SCH (08:45)
[2018-10-31] MEDS: ISOSORBIDE MONO EXTENDED REL 60 MG TABCR PO SCH (08:46)
[2018-10-31] MEDS: ENOXAPARIN INJ 40 MG/0.4 ML SYR SQ SCH (08:46)
[2018-10-31] MEDS: FUROSEMIDE 20 MG TAB PO SCH (08:46)
[2018-10-31] MEDS: POTASSIUM CHLORIDE 20 MEQ TABCR PO SCH (08:46)
--- NOTE | 2018-10-31 12:46 | Hospitalist Progress Note ---
Date of Service October 31, 2018 Assessment & Plan (1) Wrist fracture, left: With Colle's fracture Now in short cast ortho has seen - nonoperative Rx recommended. pain improved will need SNF placement due to NWB status to LLE. -continue pain management with percocet prn f/u with Ortho in 1 week (2) Closed fracture of tibial plateau: Left leg. 6 weeks NWB status. Nonoperative Rx recommended by ortho. Immobilizer in place, but can remove while in bed and with showering. PT/OT placement at SNF -f/u with Ortho in 1 week -pain control with percocet prn -given relative immobility, will recommend 2 weeks of Lovenox 40mg SQ daily after discharge (3) Fall: accidental no preceding syncope, cardiac symptoms, etc prior to fall (4) CAD (coronary artery disease): Has h/o [place] previoulsy, cardiac cath in 2017 showed what sounds like RCA occlusion? Had collaterals, no stents placed. -no ischemic sx's at this time -cont asa, BB, statin, imdur (5) Asthma: history of not in exacerbation at this time -continue Xoopenex prn (6) Osteopenia: patient self-reports this, also visualized on imaging will need repeat DEXA after this stay within 6 months has mild vitamin D insufficiency - placed on vit D supplementation -would be good candidate for Forteo or Prolia--she has seen Rheum recently and thinks she had a DEXA, but Dr. Lee of Rheumatology at [facility] is now moved out of the area--> will need referral to a new Privacy Specialist (7) Essential hypertension: controlled -continue amlodipine, metoprolol, lasix, Imdur (8) Chronic pain syndrome: Secondary to severe OA in hips takes chronic narcotics at home - 10mg percocet at a time multiple times each day she thus has tolerance to narcotics this is why we had to resort to dilaudid for pain control initially, but now only requiring her usual doses of percocet -continue current percocet dosing prn -dc'd Celebrex due to CKD stage III -advised increase in amount of percocet prn as long as is prescribed dose ( ordered q6 prn) (9) Anemia: ferritin, b12, folate all wnl anemia is normocytic and mild repeat CBC today with stable hgb 10-11 Likely anemia of chronic kidney disease, but also reports recent hemorrhoidal bleeding outpatient work-up recommended (10) Hypothyroidism: TSH normal at 4.23 cont synthroid (11) Vitamin D insufficiency: 2000 IU of vitamin D daily level was about 25 (12) CKD (chronic kidney disease) stage 3, GFR 30-59 ml/min: GFR around 36 since 2017 -avoid nephrotoxins -renally dose medications -should have routine outpatient f/u on this -avoid all NSAIDs- dcd Celebrex and discussed with pt--> she also takes Aleve at times on top of her Celebrex (13) DVT prophylaxis: Lovenox 40mg SQ in the AM and continue x 2 weeks Dispo-plan for dc to [facility]-no bed today, hopeful for tomorrow Subjective Pt feeling well, pain controlled. No CP or SOB. Is concerned about being off her Celebrex but we discussed her dx of CKD stage III and she is accepting of this if she can take more of her oxycodone. Is moving her bowels regularly, good appetite, no other concerns Review of Systems All systems reviewed & are unremarkable except as noted in HPI & below Physical Exam 2 Vital Signs (Past 24 Hours): Last Vital Signs Temp 36.9 C 10/31/18 08:41 Pulse 64 10/31/18 08:41 Resp 20 10/31/18 08:41 BP 110/52 L 10/31/18 08:41 Pulse Ox 97 10/31/18 08:41 Constitutional: WD/WN, vitals as above Eyes: PERRL, conjunctivae normal, anicteric sclerae Neck: trachea midline, no thyromegaly Respiratory: normal respiratory effort, lungs clear to auscultation Cardiovascular: RRR, no murmur, no edema Gastrointestinal (Abdomen): normal bowel sounds, soft, nontender, no hepatosplenomegaly Musculoskeletal: Extremities: + extremities abnormal to inspection (left forearm in short cast, fingers mobile, no edema,sensation intact to lt touch; left LE in knee immobilizer, able to dorsiflex and plantarflex foot and toes), no cyanosis and no clubbing Skin: no rashes, warm and dry Neurologic: moves all extremities and awake; no focal motor deficits Psychiatric: A+Ox3, euthymic affect Results & Data Laboratory Results 10/31/18 Range/Units 05:51 WBC 4.86 (4.8-10.8) K/uL RBC 3.53 L (4.2-5.4) M/uL Hgb 10.9 L (12.0-16.0) g/dL Hct 32.9 L (37-47) % MCV 93.2 (80-100) fL MCH 30.9 (25-34) pg MCHC 33.1 (32-36) g/dL RDW Std Deviation 47.5 H (36.4-46.3) fL RDW Coeff of Myrna 14.0 (11.5-14.5) % Plt Count 160 (130-400) K/uL MPV 10.5 H (7.4-10.4) fL _ (1) Wrist fracture, left Encounter type: subsequent encounter Fracture healing: with routine healing Fracture type: closed Qualified Code(s): S62.102D - Fracture of unspecified carpal bone, left wrist, subsequent encounter for fracture with routine healing (2) Closed fracture of tibial plateau Encounter type: initial encounter Fracture healing: Laterality: left Qualified Code(s): S82.142A - Displaced bicondylar fracture of left tibia, initial encounter for closed fracture (3) Fall Encounter type: subsequent encounter Qualified Code(s): W19.XXXD - Unspecified fall, subsequent encounter (4) CAD (coronary artery disease) Coronary Disease-Associated Artery/Lesion type: [place] artery [place] vs. transplanted heart: [place] heart Associated angina: without angina Qualified Code(s): I25.10 - Atherosclerotic heart disease of [place] coronary artery without angina pectoris (5) Asthma Asthma severity: mild Asthma persistence: intermittent Asthma complication type: uncomplicated Qualified Code(s): J45.20 - Mild intermittent asthma, uncomplicated (6) Osteopenia Osteopenia location: forearm Laterality: left Qualified Code(s): M85.832 - Other specified disorders of bone density and structure, left forearm (7) Anemia Anemia type: unspecified type Iron deficiency anemia type: Vitamin B12 deficiency anemia type: Folate deficiency anemia type: Bone marrow failure anemia type: Hemolytic anemia type: Other causes of anemia: Chronic kidney disease stage: Qualified Code(s): D64.9 - Anemia, unspecified (8) Hypothyroidism Hypothyroidism type: acquired Qualified Code(s): E03.9 - Hypothyroidism, unspecified
[2018-10-31] MEDS: OXYCODONE/ACETAMINOPHEN 10-325 TAB PO PRN (15:16)
[2018-10-31] MEDS: METOPROLOL SUCC 25MG EXT REL TAB PO SCH (21:11)
[2018-10-31] MEDS: ROSUVASTATIN CALCIUM 20 MG TAB PO SCH (21:11)
[2018-10-31] MEDS: ASPIRIN 81 MG ECTAB PO SCH (21:11)
[2018-11-01] MEDS: LEVOTHYROXINE SODIUM 50 MCG TABLET PO SCH (05:25)
[2018-11-01] MEDS: OXYCODONE/ACETAMINOPHEN 10-325 TAB PO PRN ×2 (08:28→16:03)
[2018-11-01] MEDS: PANTOprazole 40 MG TAB PO SCH (08:53)
[2018-11-01] MEDS: POTASSIUM CHLORIDE 20 MEQ TABCR PO SCH (08:56)
[2018-11-01] MEDS: AMLODIPINE BESYLATE 5 MG TAB PO SCH (08:57)
[2018-11-01] MEDS: CHOLECALCIFEROL 1,000 UNITS TAB PO SCH (08:57)
[2018-11-01] MEDS: ISOSORBIDE MONO EXTENDED REL 60 MG TABCR PO SCH (08:57)
[2018-11-01] MEDS: ENOXAPARIN INJ 40 MG/0.4 ML SYR SQ SCH (08:58)
[2018-11-01] MEDS: FUROSEMIDE 20 MG TAB PO SCH (08:58)
--- NOTE | 2018-11-01 14:36 | Discharge Summary ---
Date of Service November 01, 2018 Admission HPI Per Admitting Provider 78 y/o F Hx CAD, HTN, HLD. asthma. The pt suffered a mechanical fall onto her L side. She was unable to bear weight on her L leg and managed to crawl into her house to alert EMS. Imaging in the ER confirmed fractures of the L distal radius, ulna and tibial plateau. She was unable to ambulate when this was attempted with a walker in the ER, and is therefore admitted for transfer to rehab. She denies any symptoms preceding her fall such as CP, palpitations or lightheadedness. PMH: 1) CAD - she may have had a posterior MN. States that "an artery in the back of her heart is clogged up". She describes being told that she had collateral circulation following a cath. 2) HTN 3) HLD 4) Asthma 5) History of Lyme disease 6) Osteoporosis 7) GERD 8) History of uterine cancer 9) Following her MN, the pt states she had an EF of 35% and states that it is now 55% 10) Reports valvular heart disease but could not provide specifics Surgical: 1) Rotator cuff surgery 2016 2) Appendectomy 3) Hysterectomy Social: No history of drinking or smoking Family: Noncontributory to current complaint Principal Diagnosis Left wrist Colles' fracture, left tibial plateau fracture Discharge Exam Constitutional WD/WN, vitals as above Eyes PERRL, conjunctivae normal, anicteric sclerae Neck trachea midline, no thyromegaly Respiratory normal respiratory effort, lungs clear to auscultation Cardiovascular RRR, no murmur, no edema Gastrointestinal (Abdomen) normal bowel sounds, soft, nontender, no hepatosplenomegaly Musculoskeletal Extremities: + extremities abnormal to inspection (left forearm in short cast, fingers mobile, no edema,sensation intact to lt touch; left LE in knee immobilizer, able to dorsiflex and plantarflex foot and toes), no cyanosis and no clubbing Skin no rashes, warm and dry Neurologic moves all extremities and awake; no focal motor deficits Psychiatric A+Ox3, euthymic affect Discharge Data Allergies Allergy/AdvReac Type Severity Reaction Status Date / Time No Known Allergies Allergy Unverified 10/27/18 18:53 Consultations Orthopedic Surgery Ordered Studies 10/27/18 18:02 CT head/brain wo con Stat 10/28/18 09:59 CT knee LT wo con Stat CT wrist LT wo con Stat Wrist x-ray Shoulder x-ray Knee x-ray Hospital Course (1) Wrist fracture, left: With Colle's fracture Now in short cast ortho has seen - nonoperative Rx recommended. pain improved needs SNF placement due to NWB status to LLE. -continue pain management with percocet prn f/u with Ortho in 1 week (2) Closed fracture of tibial plateau: Left leg. 6 weeks NWB status. Nonoperative Rx recommended by ortho. Immobilizer in place, but can remove while in bed and with showering. With some mild numbness on the plantar surface of the forefoot on the day of discharge, pulses and sensation intact, could be secondary to mild edema of the left leg and compression from knee immobilizer-observe for worsening PT/OT placement at SNF -f/u with Ortho in 1 week -pain control with percocet prn -given relative immobility, will recommend 2 weeks of Lovenox 40mg SQ daily after discharge (3) Fall: accidental no preceding syncope, cardiac symptoms, etc prior to fall (4) CAD (coronary artery disease): Has h/o [place] previously, cardiac cath in 2017 showed what sounds like RCA occlusion? Had collaterals, no stents placed. -no ischemic sx's at this time -cont asa, BB, statin, imdur (5) Asthma: history of not in exacerbation at this time -continue Xoopenex prn (6) Osteopenia: patient self-reports this, also visualized on imaging will need repeat DEXA after this stay within 6 months has mild vitamin D insufficiency - placed on vit D supplementation -would be good candidate for Forteo or Prolia--she has seen Rheum recently and thinks she had a DEXA, but Dr. Lee of Rheumatology at [facility] is now moved out of the area--> will need referral to a new Swamper (7) Essential hypertension: controlled -continue amlodipine, metoprolol, lasix, Imdur (8) Chronic pain syndrome: Secondary to severe OA in hips takes chronic narcotics at home - 10mg percocet at a time multiple times each day she thus has tolerance to narcotics this is why we had to resort to dilaudid for pain control initially, but now only requiring her usual doses of percocet -continue current percocet dosing prn -dc'd Celebrex due to CKD stage III -advised increase in amount of percocet prn as long as is prescribed dose ( ordered q6 prn) (9) Anemia: ferritin, b12, folate all wnl anemia is normocytic and mild repeat CBC today with stable hgb 10-11 Likely anemia of chronic kidney disease, but also reports recent hemorrhoidal bleeding outpatient work-up recommended (10) Hypothyroidism: TSH normal at 4.23 cont synthroid (11) Vitamin D insufficiency: 2000 IU of vitamin D daily Vitamin D level was 25 here (12) CKD (chronic kidney disease) stage 3, GFR 30-59 ml/min: GFR around 36 since 2017 -avoid nephrotoxins -renally dose medications -should have routine outpatient f/u on this -avoid all NSAIDs- dcd Celebrex and discussed with pt--> she also takes Aleve at times on top of her Celebrex (13) DVT prophylaxis: Lovenox 40mg SQ in the AM and continue x 2 weeks Dispo-plan for dc to [facility] today Total Time Total Time Spent Total Time Spent (In Minutes): Greater than 30 minutes Total Time Includes: Examination of the Patient, Discharge Planning, Medication Reconciliation and Communication With Other Providers (Orthopedic surgery PA) Discharge Plan Discharge Items Patient Disposition: Transfer Assisted Fac Reason For Visit: TIBIAL AND RADIAL FRACTURES Discharge Diagnosis: Left Colles fracture and left tibial plateau fracture Condition: Fair Discharge Goals: Decrease discomfort, Diagnostic testing, Improve disease control, Learn about illness and Therapeutic intervention Activity: As commented below Non-emergency contact: Primary Care Provider and Surgeon Call non-emergency contact if: you have any medication questions, your symptoms worsen, your pain is not controlled, your pain is worsening, your pain is unusual for you and your pain is concerning for you Follow-up/Referrals: Spencer Ndiaye DO [Surgeon] - (F/U in 1 week for x-rays of the wrist in cast. Please call for appointment with Dr. Ndiaye's team.) Diet: Heart Healthy Addtl Provider Instructions: ACTIVITY RECOMMENDATIONS: Limitations: No weight bearing to affected limb (left lower extremity) at all times. Please have the knee immobilizer brace in place at all times except bathing and sleep (if tolerated). SPECIAL CARE INSTRUCTIONS: * The cast will remain on the left upper extremity for at least 6 weeks. We will check x-rays on a weekly basis for the next 2-3 weeks to ensure the alignment is maintained. * Some drainage onto the dressing is normal and is no cause for alarm. * Some swelling is natural especially after walking. * When resting, keep your foot elevated above the level of your heart. * Call [facility] if you notice: -Increased drainage -Fever over 101 degrees F -Severe constant pain BANDAGE: * Leave bandage/cast in place unless otherwise directed. * Keep bandage/cast dry at all times. FOLLOW UP VISIT WITH DR. NDIAYE If appointment is not already scheduled: Please call [facility] after you get home today to schedule a follow-up appointment for [address] Ndiaye at . Prescriptions: New enoxaparin 40 mg/0.4 mL Syringe 40 mg subcut QAM 10 Days Qty: 4 RF: 0 polyethylene glycol 3350 [Miralax] 17 gram Powder In Packet 17 g PO DAILY PRN (Reason: constipation) Qty: 30 RF: 0 levothyroxine [Synthroid] 50 mcg Tablet 50 mcg PO DAILYBB Qty: 30 RF: 0 cholecalciferol (vitamin D3) [Vitamin D3] 1,000 unit Tablet 1,000 unit PO QAM Qty: 30 RF: 0 Continue nitroglycerin [Nitrostat] 0.3 mg Tablet, Sublingual 0.3 mg Sublingual UD PRN (Reason: Chest Pain) RF: 0 amlodipine [Norvasc] 5 mg tablet 5 mg PO DAILY RF: 0 aspirin [Aspir-81] 81 mg Tablet,Delayed Release (Dr/Ec) 81 mg PO DAILY RF: 0 isosorbide mononitrate 60 mg tablet extended release 24 hr 60 mg PO DAILY RF: 0 potassium chloride [Klor-Con M20] 20 mEq tablet,ER particles/crystals 20 meq PO DAILY RF: 0 pantoprazole [Protonix] 40 mg tablet,delayed release (DR/EC) 40 mg PO DAILY RF: 0 furosemide [Lasix] 20 mg tablet 20 mg PO DAILY RF: 0 ergocalciferol (vitamin D2) [Vitamin D2] 50,000 unit Capsule 50,000 unit PO WK RF: 0 coenzyme Q10 [Co Q-10] 100 mg Capsule 100 mg PO DAILY RF: 0 multivitamin Tablet 1 tab PO DAILY RF: 0 vitamin B complex Tablet 1 tab PO DAILY RF: 0 oxycodone-acetaminophen [Percocet] 10-325 mg tablet 1 tab PO Q6 PRN (Reason: Pain) Qty: 12 RF: 0 Changed metoprolol succinate [Toprol XL] 25 mg tablet extended release 24 hr 25 mg PO QPM Qty: 0 RF: 0 rosuvastatin [Crestor] 20 mg tablet 20 mg PO QPM Qty: 0 RF: 0 levalbuterol tartrate [Xopenex HFA] 45 mcg/actuation HFA aerosol inhaler 2 puff Inhalation Q6H PRN (Reason: shortness or breath or wheezing) Qty: 0 RF : 0 Discontinued erythromycin 5 mg/gram (0.5 %) ointment 1 applic ophthalmic (eye) UD RF: 0 Stand-Alone Forms: [facility] Discharge Orders: Discharge Order (Routine); Ordered 11/01/18 Ordered By: Brianda Johnson Skilled Items Patient informed of condition?: Yes DNR: No Discharge Level of Care: Skilled Communicable Disease: No Discharge Prognosis: Stable Admission Data Admit Date/Time: 10/29/18 12:57 Attending Provider: Brianda Johnson Admit Provider: Krishna Goyal Primary Care Provider: Casimiro Flores Other Providers: Krishna Goyal ; Paxton Goyal Service: Surgical Services Other Interventions: Discharge Summary Assessment (RN) Last Done: 11/01/18 14:35 Pending Studies at Discharge: No DC Date/Time DO NOT enter until pt leaves facility: 11/01/18 17:05
[2018-11-01 15:19] VITALS: BP 132/74; PULSE 87; TEMP 98.8; O2SAT 94
== END 2018-11-01 17:05 | DRG 563 ==
LOC: 3W 17:41 → ED 17:41 → SUATTDRO 22:15 → 3W 23:05 → SUATTDRO 10-29 12:57
DX: Y92.018 Other place in single-family (private) house as the place of occurrence of the external cause; I25.2 Old myocardial infarction; Z85.42 Personal history of malignant neoplasm of other parts of uterus; S52.612A Displaced fracture of left ulna styloid process, initial encounter for closed fracture; K64.9 Unspecified hemorrhoids; S52.502A Unspecified fracture of the lower end of left radius, initial encounter for closed fracture; D64.9 Anemia, unspecified; J45.909 Unspecified asthma, uncomplicated; E03.9 Hypothyroidism, unspecified; W17.89XA Other fall from one level to another, initial encounter; S82.142A Displaced bicondylar fracture of left tibia, initial encounter for closed fracture; Z79.899 Other long term (current) drug therapy; I25.10 Atherosclerotic heart disease of native coronary artery without angina pectoris; E55.9 Vitamin D deficiency, unspecified; I12.9 Hypertensive chronic kidney disease with stage 1 through stage 4 chronic kidney disease, or unspecified chronic kidney disease; E78.5 Hyperlipidemia, unspecified; M85.9 Disorder of bone density and structure, unspecified; N18.3 Chronic kidney disease, stage 3 (moderate); M16.0 Bilateral primary osteoarthritis of hip; G89.4 Chronic pain syndrome